=== PATIENT | male | born 1945 | race Hispanic/Latino ===

== ENCOUNTER 2016-10-16 14:47 | Inpatient (IN) | payer OTHER, MEDICARE ==
[2016-10-16 14:47] VITALS: BMI 18.6
--- NOTE | 2016-10-16 15:19 | C.PDOC ---
History Of Present Illness Patient is a 71 y/o male, whose PMHx includes HTN, and anemia, that presents to the ED for evaluation of dizziness, weakness, and mild headache for the past week. Patient states his symptoms have worsened over the last few days. Notes getting B12 injection from his PMD. Otherwise, denies any fever, chills, or any other complaints at this time. Time Seen by Provider: 10/16/16 14:56 Chief Complaint (Nursing): Weakness/Neurological Deficit History Per: Patient History/Exam Limitations: no limitations Onset/Duration Of Symptoms: Days Current Symptoms Are (Timing): Still Present Recent travel outside of the [place]: No Additional History Per: Patient Past Medical History Reviewed: Historical Data, Nursing Documentation, Vital Signs Vital Signs: Last Vital Signs Temp 98.2 F 10/16/16 21:46 Pulse 84 10/16/16 21:46 Resp 20 10/16/16 21:46 BP 127/75 10/16/16 21:46 Pulse Ox 97 10/16/16 21:46 - Medical History PMH: Anemia, Anxiety, Emphysema, HTN - [facility] Procedures MEASURE OF CARDIAC SAMPL & PRESSURE, L HEART, PERC APPROACH (03/20/15) PLAIN RADIOGRAPHY OF SINGLE COR ART USING OTH CONTRAST (03/20/15) PLAIN RADIOGRAPHY OF THORACIC AORTA USING OTHER CONTRAST (03/20/15) Family History: States: Unknown Family Hx, PR (brother -PR at 68; father - HTN) - Social History Hx Tobacco Use: No Hx Alcohol Use: No Hx Substance Use: No - Immunization History Hx Tetanus Toxoid Vaccination: No Hx Influenza Vaccination: Yes (2015) Hx Pneumococcal Vaccination: Yes (2016) Review Of Systems Except As Marked, All Systems Reviewed And Found Negative. Constitutional: Positive for: Weakness. Negative for: Fever, Chills Eyes: Negative for: Vision Change Cardiovascular: Negative for: Chest Pain, Palpitations Gastrointestinal: Negative for: Nausea, Vomiting Neurological: Positive for: Headache, Dizziness. Negative for: Numbness Physical Exam - Physical Exam Appears: Non-toxic, No Acute Distress Skin: Warm, Dry, Pale (mild) Head: Atraumatic, Normacephalic Eye(s): bilateral: Normal Inspection, EOMI Neck: Normal ROM, Supple Chest: Symmetrical, No Tenderness Cardiovascular: Rhythm Regular, No Murmur Respiratory: Normal Breath Sounds, No Rales, No Rhonchi, No Wheezing Gastrointestinal/Abdominal: Soft, No Tenderness Extremity: Normal ROM, No Deformity Neurological/Psych: Oriented x3, Normal Speech, Normal Cognition, No Cerebellar Signs, Normal Motor, Normal Sensation, Normal Reflexes, Other (normal gait) ED Course And Treatment - Laboratory Results Result Diagrams: 10/16/16 15:32 10/16/16 15:32 O2 Sat by Pulse Oximetry: 97 (on RA) Pulse Ox Interpretation: Normal Progress Note: Labs, EKG ordered and reviewed. Medical Decision Making Medical Decision Making: r/o intracrnial, metabolic, anemia, cardiac etiology of symptoms ekg nsr [address] t wave changes. 4: pt reassessed: neuro intact. labs head ct neg. pt lives byhimself. will obs for near syncope. dr yancey accepts Disposition - Disposition Disposition: HOSPITALIZED Disposition Time: 02:00 Condition: STABLE - Clinical Impression Clinical Impression: Near syncope, Weakness - Scribe Statement The provider has reviewed the documentation as recorded by the Scribrussell Ayala All medical record entries made by the Arslanibrussell were at my direction and personally dictated by me. I have reviewed the chart and agree that the record accurately reflects my personal performance of the history, physical exam, medical decision making, and the department course for this patient. I have also personally directed, reviewed, and agree with the discharge instructions and disposition. Decision To Admit - . Patient Diagnosis: Near syncope, Weakness
[2016-10-16 15:40] LABS: BASO % 0.4 % (0.0-2.0); EOS % 0.2 % (0.0-4.0); HEMOGLOBIN 13.4 g/dL (12.0-18.0); LYMPH # 1.1 K/uL (1.0-4.3); LYMPH % 21.3 % (20.0-40.0); MEAN CELL VOLUME 99.2 fL (80.0-94.0); MEAN CORPUSCULAR HEMOGLOBIN 33.4 pg (27.0-31.0); MEAN CORPUSCULAR HGB CONC 33.6 g/dL (33.0-37.0); MEAN PLATELET VOLUME 8.6 fL (7.2-11.7); MONO # 0.5 K/uL (0.0-0.8); MONO % 9.2 % (0.0-10.0); NEUT # 3.4 K/uL (1.8-7.0); NEUT % 68.9 % (50.0-75.0); RBC 4.02 Mil/uL (4.40-5.90); WHITE BLOOD COUNT 4.9 K/uL (4.8-10.8)
[2016-10-16 15:44] LABS: ALBUMIN 3.9 g/dL (3.5-5.0)
[2016-10-16 15:46] LABS: GFR AFRICAN-AMERICAN > 60; GFR NON-AFRICAN AMERICAN > 60
[2016-10-16 15:47] LABS: ALB/GLOB RATIO 1.4 (1.0-2.1); ALT/SGPT 27 U/L (21-72); AST/SGOT 24 U/L (17-59); BLOOD UREA NITROGEN 24 mg/dL (9-20)
[2016-10-16 15:48] LABS: CALCIUM 9.1 mg/dl (8.6-10.4)
[2016-10-16 15:49] LABS: INR 1.1; PROTHROMBIN TIME 12.4 SECONDS (9.7-12.2)
--- NOTE | 2016-10-16 16:26 | CT ---
PROCEDURE: CT HEAD WITHOUT CONTRAST. HISTORY: bill COMPARISON: None available. TECHNIQUE: Axial computed tomography images were obtained through the head/brain without intravenous contrast. Radiation dose: Total exam DLP = 859.11 mGy-cm. This CT exam was performed using one or more of the following dose reduction techniques: Automated exposure control, adjustment of the mA and/or kV according to patient size, and/or use of iterative reconstruction technique. FINDINGS: HEMORRHAGE: No intracranial hemorrhage. BRAIN: Diffuse atrophy with prominence of the ventricles and sulci noted. No mass effect or edema. Dense intracranial atherosclerotic calcifications. The pina-white matter differentiation appears intact. Please note that MRI with diffusion imaging is more sensitive in the detection of acute ischemic event. VENTRICLES: No hydrocephalus. CALVARIUM: Unremarkable. PARANASAL SINUSES: Unremarkable as visualized. No significant inflammatory changes. MASTOID AIR CELLS: Unremarkable as visualized. No inflammatory changes. OTHER FINDINGS: None. IMPRESSION: No acute intracranial pathology identified. Findings as above.
[2016-10-16 16:50] LABS: SQUAMOUS EPITHIAL < 1 /hpf (0-5); URINE BILIRUBIN NEGATIVE (NEGATIVE); URINE BLOOD 1+ (NEGATIVE); URINE CLARITY Clear (Clear); URINE COLOR Straw (YELLOW); URINE GLUCOSE (UA) NORMAL (Normal); URINE LEUKOCYTE ESTERASE NEG Leu/uL (Negative); URINE NITRATE NEGATIVE (NEGATIVE); URINE PROTEIN NEGATIVE (NEGATIVE); URINE UROBILINOGEN NORMAL mg/dL (0.2-1.0)
--- NOTE | 2016-10-16 21:38 | CP.PCM.HP ---
History of Present Illness - History of Present Illness History of Present Illness: CC: Dizziness and weakness HPI: Mr Soto is a 71 yo man who was BIBA to the ED for worsening dizziness and weakness which began 1 week ago. He does not admit to any remitting or exacerbating factors. He associates his dizziness with walking and says he loses his balance. He also endorses a mild headache during this time. He states his losartan 50mg po daily was discontinued a month ago. He denies loss of consciousness, vertigo, vision changes, fever. 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 absent: Chills, Fever - EENT Eyes: absent: Change in Vision Nose/Mouth/Throat: Neck Pain. absent: Sinus Pain, Sore Throat - Cardiovascular Cardiovascular: Dyspnea on Exertion, Lightheadedness. absent: Chest Pain - Respiratory Respiratory: Dyspnea on Exertion. absent: Cough, Wheezing - Gastrointestinal Gastrointestinal: absent: Abdominal Pain, Bloating, Constipation, Diarrhea - Genitourinary Genitourinary: absent: Dysuria, Flank Pain - Musculoskeletal Musculoskeletal: Neck Pain. absent: Back Pain, Joint Swelling - Integumentary Integumentary: absent: Bleeding Lesions, Change in Pigmentation - Neurological Neurological: Dizziness. absent: Behavioral Changes, Confusion, Focal Weakness - Psychiatric Psychiatric: absent: Behavioral Changes Past Patient History - Infectious Disease Hx of Infectious Diseases: None - Past Medical History & Family History Past Medical History?: Yes - Past Social History Smoking Status: Never Smoked - CARDIAC Hx Hypertension: Yes - PULMONARY Hx Emphysema: Yes - HEENT Hx HEENT Problems: No - HEMATOLOGICAL/ONCOLOGICAL Hx Anemia: Yes - MUSCULOSKELETAL/RHEUMATOLOGICAL Hx Falls: No - GASTROINTESTINAL Hx Gastrointestinal Disorders: Yes Hx Gastroesophageal Reflux: Yes Hx Hemorrhoids: Yes - PSYCHIATRIC Hx Anxiety: Yes Hx Substance Use: No - SURGICAL HISTORY Hx Surgeries: Yes Hx Cataract Extraction: Yes (Left eye) Hx Cardiac Catheterization: Yes Other/Comment: HEMORRHOIDECTOMY - ANESTHESIA Hx Anesthesia: Yes Hx Anesthesia Reactions: No Hx Malignant Hyperthermia: No Meds Allergies/Adverse Reactions: Allergies Allergy/AdvReac Type Severity Reaction Status Date / Time Penicillins Allergy Intermediate SWELLING Verified 10/16/16 15:03 Physical Exam - Constitutional Appears: Well, Non-toxic, No Acute Distress - Head Exam Head Exam: NORMAL INSPECTION - Eye Exam Eye Exam: EOMI Additional comments: cloudy lens of left eye - ENT Exam ENT Exam: Mucous Membranes Moist - Neck Exam Neck exam: Negative for: Tenderness Additional comments: tenderness of left neck - Respiratory Exam Respiratory Exam: Clear to Auscultation Bilateral, NORMAL BREATHING PATTERN. absent: Wheezes - Cardiovascular Exam Cardiovascular Exam: REGULAR RHYTHM, RRR, +S1, +S2 - GI/Abdominal Exam GI & Abdominal Exam: Normal Bowel Sounds, Soft. absent: Tenderness - Rectal Exam Rectal Exam: Deferred - Extremities Exam Extremities exam: Positive for: normal inspection. Negative for: calf tenderness, pedal edema, tenderness - Neurological Exam Neurological exam: Alert, CN II-XII Intact, Oriented x3, Reflexes Normal - Psychiatric Exam Psychiatric exam: Normal Affect, Normal Mood - Skin Skin Exam: Dry, Intact, Normal Color, Warm Results - Vital Signs Recent Vital Signs: Last Vital Signs Temp 98.5 F 10/16/16 21:04 Pulse 90 10/16/16 21:04 Resp 16 10/16/16 21:04 BP 128/70 10/16/16 21:04 Pulse Ox 96 10/16/16 21:04 - Labs Result Diagrams: 10/16/16 15:32 10/16/16 15:32 Assessment & Plan (1) Dizziness Assessment and Plan: c/o of dizziness and weakness for 1 week Aspirin 81mg po daily Duplex scan carotid, f/u Neurology consult, Dr Isaac Sands, f/u recs simvastatin 40mg po daily 10/16 CT Head: No acute intracranial pathology identified. Findings as above. 10/16 EKG: NSR, no ST or T wave changes Status: Acute (2) Emphysema of lung Assessment and Plan: con't home meds: albuterol sulfate 90 mcg 1 IH BID Ipratropium 1 puff IH daily Status: Acute (3) Prophylactic measure Assessment and Plan: SCDs Heparin 5000u sc q8 pepcid 20mg po bid heart healthy diet Status: Acute
[2016-10-17 08:20] LABS: BASO % 0.3 % (0.0-2.0); EOS % 0.7 % (0.0-4.0); MEAN CELL VOLUME 99.6 fL (80.0-94.0); MEAN CORPUSCULAR HEMOGLOBIN 33.5 pg (27.0-31.0); MEAN CORPUSCULAR HGB CONC 33.6 g/dL (33.0-37.0); MEAN PLATELET VOLUME 8.3 fL (7.2-11.7); MONO # 0.5 K/uL (0.0-0.8); MONO % 11.2 % (0.0-10.0); NEUT # 2.1 K/uL (1.8-7.0); NEUT % 44.8 % (50.0-75.0); NRBC % 0.1 % (0.0-2.0); RBC 3.89 Mil/uL (4.40-5.90); RED CELL DISTRIBUTION WIDTH 12.9 % (11.5-14.5); WHITE BLOOD COUNT 4.7 K/uL (4.8-10.8)
[2016-10-17 08:47] LABS: ALBUMIN 3.6 g/dL (3.5-5.0)
[2016-10-17 08:50] LABS: ALB/GLOB RATIO 1.2 (1.0-2.1); GFR AFRICAN-AMERICAN > 60; GFR NON-AFRICAN AMERICAN > 60
[2016-10-17 08:51] LABS: ALT/SGPT 27 U/L (21-72); AST/SGOT 23 U/L (17-59); BLOOD UREA NITROGEN 21 mg/dL (9-20); MAGNESIUM 1.9 mg/dL (1.6-2.3)
--- NOTE | 2016-10-17 11:20 | CP.PCM.CON ---
History of Present Illness - History of Present Illness History of Present Illness: NEURO CONSULT NOTE: 10/17/16 CHIEF COMPLAINT: DIZZINESS. HPI: MR. 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 HE MENTIONS THAT THE DIZZINESS IS MORE A FAINT FEELING ALONG WITH MILD SPINNING SENSATION OF THE ROOM. HE FEELS A BUZZING FEELING IN HIS HEAD GIVING HIM A MILD HEADACHE. CT HEAD SHOWED NO ACUTE ABNORMALITY. CAROTID DOPPLER SHOWED MILD DISEASE. THERE IS NO FOCAL WEAKNESS IN THE EXTREMITIES OR A PRONATOR DRIFT. HE IS CACHETIC LOOKING. BUN IS ELEVATED AND CR IS LOW INDICATING PATIENT IS MILDLY DEHYDRATED. BP IS STABLE. ROS: 14 POINT REVIEW OF SYMPTOMS IS NEGATIVE PER HPI. 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 PP 2+ B/L NEURO: PT IS ALERT AND ORIENTED TO PERSON, PLACE, AND YEAR. , RECALL TO 5 MINUTES 3/3, SPEECH IS FLUENT WITHOUT ERRORS, CN II-XII INTACT, MOTOR EXAM: NORMAL TONE,DECREASED BULK OF MUSCLE IN ALL EXTREMITIES, MOVES ALL EXTREMITIES EQUALLY, NO PRONATOR DRIFT SEEN. SENSORY EXAM: LIGHT TOUCH, PIN PRICK UP TO CALVES B/L, PROPRIOCEPTION , VIBRATION ARE INTACT B/L DEEP TENDON REFLEXES: 1+ THROUGHOUT. COORDINATION: FINGER TO NOSE IS INTACT. HEEL TO PRIDE IS INTACT GAIT: DEFERRED FOR NOW. LABS: REVIEWED BY THE CHART. ASSESSMENT AND PLAN: MR. 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 HE MENTIONS THAT THE DIZZINESS IS MORE A FAINT FEELING ALONG WITH MILD SPINNING SENSATION OF THE ROOM. HE FEELS A BUZZING FEELING IN HIS HEAD GIVING HIM A MILD HEADACHE. CT HEAD SHOWED NO ACUTE ABNORMALITY. CAROTID DOPPLER SHOWED MILD DISEASE. THERE IS NO FOCAL WEAKNESS IN THE EXTREMITIES OR A PRONATOR DRIFT. HE IS CACHETIC LOOKING. BUN IS ELEVATED AND CR IS LOW INDICATING PATIENT IS MILDLY DEHYDRATED. BP IS STABLE. IMPRESSION: DIZZINESS IS MORE OF POSITIONAL SUPERIMPOSED MILD DEHYDRATION AND DECONDITIONED STATE. HE IS MALNOURISHED. 1. ASA 81 MG FOR STROKE PREVENTION 2. NEEDS BETTER SLEEP HYGIENE. 3. FIORECET AT THE ACUTE ONSET OF HEADACHE 4. HYDRATION AND MONITOR ELECTROLYTES. 5. MRI BRAIN TO ASSESS FOR ANY CENTRAL PATHOLOGY. 6. ORTHOSTATIC VITAL SIGNS. 7. PHYSICAL THERAPY EVALUATION. THANK YOU. Mahesh DAVID MD Past Patient History - Infectious Disease Hx of Infectious Diseases: None - Past Medical History & Family History Past Medical History?: Yes - Past Social History Smoking Status: Never Smoked - CARDIAC Hx Hypertension: Yes - PULMONARY Hx Emphysema: Yes - HEENT Hx HEENT Problems: No - HEMATOLOGICAL/ONCOLOGICAL Hx Anemia: Yes - MUSCULOSKELETAL/RHEUMATOLOGICAL Hx Falls: No - GASTROINTESTINAL Hx Gastrointestinal Disorders: Yes Hx Gastroesophageal Reflux: Yes Hx Hemorrhoids: Yes - PSYCHIATRIC Hx Anxiety: Yes Hx Substance Use: No - SURGICAL HISTORY Hx Surgeries: Yes Hx Cataract Extraction: Yes (Left eye) Hx Cardiac Catheterization: Yes Other/Comment: HEMORRHOIDECTOMY - ANESTHESIA Hx Anesthesia: Yes Hx Anesthesia Reactions: No Hx Malignant Hyperthermia: No Meds Allergies/Adverse Reactions: Allergies Allergy/AdvReac Type Severity Reaction Status Date / Time Penicillins Allergy Intermediate SWELLING Verified 10/16/16 15:03 aspirin Allergy bleeding Verified 10/16/16 22:07 meclizine [From Antivert] Allergy DIZZINESS Verified 10/16/16 22:07 - Medications Medications: Current Medications Acetaminophen (Tylenol 325mg Tab) 325 mg PO Q4 [facility] Last Admin: 10/17/16 08:25 Dose: 325 mg Aspirin (Ecotrin) 81 mg PO DAILY [facility] Last Admin: 10/17/16 11:10 Dose: 81 mg Famotidine (Pepcid) 20 mg PO BID [facility] Last Admin: 10/17/16 10:46 Dose: 20 mg Heparin Sodium (Porcine) (Heparin) 5,000 units SC Q8 [facility] Last Admin: 10/17/16 06:28 Dose: Not Given Results - Vital Signs Recent Vital Signs: Last Vital Signs Temp 97.4 F L 10/17/16 07:00 Pulse 77 10/17/16 07:00 Resp 20 10/17/16 07:00 BP 135/85 10/17/16 07:00 Pulse Ox 98 10/17/16 07:00 - Labs Result Diagrams: 10/17/16 08:13 10/17/16 08:13 Labs: Laboratory Results - last 24 hr 10/17/16 10/17/16 08:13 08:13 WBC 4.7 L RBC 3.89 L Hgb 13.0 Hct 38.7 MCV 99.6 H MCH 33.5 H MCHC 33.6 RDW 12.9 Plt Count 145 MPV 8.3 Neut % (Auto) 44.8 L Lymph % (Auto) 43.0 H [place] % (Auto) 11.2 H Eos % (Auto) 0.7 Baso % (Auto) 0.3 Neut # 2.1 Lymph # 2.0 [place] # 0.5 Eos # 0.0 Baso # 0.0 Sodium 139 Potassium 3.9 Chloride 99 Carbon Dioxide 32 H Anion Gap 12 BUN 21 H Creatinine 0.8 Est GFR ( Amer) > 60 Est GFR (Non-Af Amer) > 60 Random Glucose 83 Calcium 9.0 Phosphorus 2.8 Magnesium 1.9 Total Bilirubin 1.1 AST 23 ALT 27 Alkaline Phosphatase 76 Total Protein 6.4 Albumin 3.6 Globulin 2.9 Albumin/Globulin Ratio 1.2
--- NOTE | 2016-10-17 15:15 | CP.PCM.PN ---
<Zeb Cantu - Last Filed: 10/17/16 20:27> Subjective - Date & Time of Evaluation Date of Evaluation: 10/17/16 Time of Evaluation: 11:00 - Subjective Subjective: Pt was seen and examined at bedside. Patient was not in acute distress. Patient reports persistence of headaches and dizziness through the night. Neighter symptom has changed in quality. Headache is described to be right-frontal that wraps around over the top and into the occiput. It's associated with bilateral posterior neck pain that radiates up the head. Patient also reports swelling of right temporal artery. He denies chest pain, abdominal pain, nausea, vomiting, diarrhea, bleeding. Objective - Vital Signs/Intake and Output Vital Signs (last 24 hours): Temp Pulse Resp BP Pulse Ox 97.4 F L 77 20 135/85 98 10/17/16 07:00 10/17/16 07:00 10/17/16 07:00 10/17/16 07:00 10/17/16 07:00 Intake and Output: 10/17/16 10/17/16 06:59 18:59 Intake Total 240 Output Total 250 Balance -10 - Medications Medications: Current Medications Acetaminophen (Tylenol 325mg Tab) 325 mg PO Q4 [facility] Last Admin: 10/17/16 12:00 Dose: Not Given Aspirin (Ecotrin) 81 mg PO DAILY [facility] Last Admin: 10/17/16 11:10 Dose: 81 mg Famotidine (Pepcid) 20 mg PO BID [facility] Last Admin: 10/17/16 10:46 Dose: 20 mg Heparin Sodium (Porcine) (Heparin) 5,000 units SC Q8 [facility] Last Admin: 10/17/16 14:53 Dose: 5,000 units - Labs Labs: 10/17/16 08:13 10/17/16 08:13 PT 12.4 SECONDS (9.7-12.2) H 10/16/16 15:32 INR 1.1 10/16/16 15:32 APTT 33 SECONDS (21-34) 10/16/16 15:32 - Constitutional Appears: Well, Non-toxic, No Acute Distress - Head Exam Head Exam: ATRAUMATIC, NORMAL INSPECTION, NORMOCEPHALIC - Eye Exam Eye Exam: EOMI, Normal appearance, PERRL - ENT Exam ENT Exam: Mucous Membranes Moist, Normal Exam - Neck Exam Neck Exam: Full ROM Additional comments: tender to palpation b/l - Respiratory Exam Respiratory Exam: Clear to Ausculation Bilateral, NORMAL BREATHING PATTERN. absent: Wheezes - Cardiovascular Exam Cardiovascular Exam: REGULAR RHYTHM, +S1, +S2. absent: Murmur - GI/Abdominal Exam GI & Abdominal Exam: Soft, Normal Bowel Sounds. absent: Tenderness - Rectal Exam Rectal Exam: Deferred - Extremities Exam Extremities Exam: absent: Calf Tenderness, Tenderness - Neurological Exam Neurological Exam: Alert, Awake, Oriented x3 - Psychiatric Exam Psychiatric exam: Normal Affect, Normal Mood - Skin Skin Exam: Dry, Intact, Normal Color, Warm Assessment and Plan (1) Dizziness Status: Acute (2) Emphysema of lung Status: Acute (3) Prophylactic measure Status: Acute - Assessment and Plan (Free Text) Assessment: (1) Dizziness Assessment and Plan: c/o of dizziness and weakness for 1 week 10/17: Patient seen by Dr Sands, Neurology: "1. ASA 81 MG FOR STROKE PREVENTION 2. NEEDS BETTER SLEEP HYGIENE. 3. FIORECET AT THE ACUTE ONSET OF HEADACHE 4. HYDRATION AND MONITOR ELECTROLYTES. 5. MRI BRAIN TO ASSESS FOR ANY CENTRAL PATHOLOGY. 6. ORTHOSTATIC VITAL SIGNS. 7. PHYSICAL THERAPY EVALUATION." Aspirin 81mg po daily Duplex scan carotid, official report pending Neurology consult, Dr Isaac Sands, f/u recs simvastatin 40mg po daily 10/16 CT Head: No acute intracranial pathology identified. Findings as above. 10/16 EKG: NSR, no ST or T wave changes Status: Acute (2) Emphysema of lung Assessment and Plan: con't home meds: albuterol sulfate 90 mcg 1 IH BID Ipratropium 1 puff IH daily Status: Acute (3) Prophylactic measure Assessment and Plan: SCDs Heparin 5000u sc q8 pepcid 20mg po bid heart healthy diet Status: Acute <Sarkis Garza Jr. - Last Filed: 10/21/16 10:41> Objective - Vital Signs/Intake and Output Vital Signs (last 24 hours): Temp Pulse Resp BP Pulse Ox 98.3 F 88 20 123/79 97 10/20/16 16:02 10/20/16 16:02 10/20/16 16:02 10/20/16 16:02 10/20/16 16:02 - Labs Labs: 10/20/16 07:14 10/20/16 07:14 PT 12.4 SECONDS (9.7-12.2) H 10/16/16 15:32 INR 1.1 10/16/16 15:32 APTT 33 SECONDS (21-34) 10/16/16 15:32 Attending/Attestation - Attestation I have personally seen and examined this patient.: Yes I have fully participated in the care of the patient.: Yes Notes (Text): 10/21/16 10:40 Agree with resident note and findings
[2016-10-18 08:07] LABS: BASO % 0.4 % (0.0-2.0); EOS % 0.8 % (0.0-4.0); HEMOGLOBIN 13.3 g/dL (12.0-18.0); LYMPH # 1.4 K/uL (1.0-4.3); LYMPH % 32.2 % (20.0-40.0); MEAN CELL VOLUME 99.2 fL (80.0-94.0); MEAN CORPUSCULAR HEMOGLOBIN 33.4 pg (27.0-31.0); MEAN CORPUSCULAR HGB CONC 33.7 g/dL (33.0-37.0); MEAN PLATELET VOLUME 8.7 fL (7.2-11.7); MONO # 0.5 K/uL (0.0-0.8); MONO % 11.8 % (0.0-10.0); NEUT # 2.4 K/uL (1.8-7.0); NEUT % 54.8 % (50.0-75.0); NRBC % 0.1 % (0.0-2.0); RBC 3.96 Mil/uL (4.40-5.90); RED CELL DISTRIBUTION WIDTH 12.7 % (11.5-14.5); WHITE BLOOD COUNT 4.4 K/uL (4.8-10.8)
[2016-10-18 08:21] LABS: ALBUMIN 3.5 g/dL (3.5-5.0)
[2016-10-18 08:24] LABS: ALB/GLOB RATIO 1.3 (1.0-2.1); ALT/SGPT 28 U/L (21-72); AST/SGOT 29 U/L (17-59); BLOOD UREA NITROGEN 26 mg/dL (9-20); GFR AFRICAN-AMERICAN > 60; GFR NON-AFRICAN AMERICAN > 60
[2016-10-18 08:25] LABS: CALCIUM 9.2 mg/dl (8.6-10.4); MAGNESIUM 2.1 mg/dL (1.6-2.3)
--- NOTE | 2016-10-18 15:35 | CP.PCM.PN ---
<Elana Villalobos - Last Filed: 10/18/16 15:31> Subjective - Date & Time of Evaluation Date of Evaluation: 10/18/16 Time of Evaluation: 07:45 - Subjective Subjective: PGY1- Medicine Note- Dr. Garza's Service Patient was seen and examined at bedside. Patient states that he still feels dizzy off and on. Patient has left sided neck pain with headache and left eye pain. Patient is very anxious to get MRI. He denies chest pain, palpitations, shortness of breath, nausea, fever, vomiting, diarrhea. Objective - Vital Signs/Intake and Output Vital Signs (last 24 hours): Temp Pulse Resp BP Pulse Ox 97.8 F 77 18 113/71 98 10/18/16 07:00 10/18/16 07:00 10/18/16 07:00 10/18/16 07:00 10/18/16 07:00 Intake and Output: 10/18/16 10/18/16 06:59 18:59 Intake Total 300 Output Total 250 Balance 50 - Medications Medications: Current Medications Acetaminophen (Tylenol 325mg Tab) 325 mg PO Q4 [facility] Last Admin: 10/18/16 12:29 Dose: 325 mg Aspirin (Ecotrin) 81 mg PO DAILY [facility] Last Admin: 10/18/16 10:40 Dose: 81 mg Diazepam (Valium) 5 mg PO ONCE PRN PRN Reason: Anxiety Last Admin: 10/18/16 14:30 Dose: 5 mg Famotidine (Pepcid) 20 mg PO BID [facility] Last Admin: 10/18/16 10:40 Dose: 20 mg Heparin Sodium (Porcine) (Heparin) 5,000 units SC Q8 [facility] Last Admin: 10/18/16 14:30 Dose: 5,000 units - Labs Labs: 10/18/16 07:53 10/18/16 07:53 PT 12.4 SECONDS (9.7-12.2) H 10/16/16 15:32 INR 1.1 10/16/16 15:32 APTT 33 SECONDS (21-34) 10/16/16 15:32 - Constitutional Appears: Well, Non-toxic, No Acute Distress - Head Exam Head Exam: ATRAUMATIC, NORMAL INSPECTION, NORMOCEPHALIC - Eye Exam Eye Exam: EOMI, Normal appearance, PERRL - ENT Exam ENT Exam: Mucous Membranes Moist, Normal Exam - Neck Exam Neck Exam: Full ROM, Normal Inspection, Tenderness. absent: Lymphadenopathy Additional comments: left neck tenderness - Respiratory Exam Respiratory Exam: Clear to Ausculation Bilateral, NORMAL BREATHING PATTERN. absent: Rales, Rhonchi, Wheezes, Respiratory Distress, Stridor - Cardiovascular Exam Cardiovascular Exam: REGULAR RHYTHM, RRR. absent: Murmur - GI/Abdominal Exam GI & Abdominal Exam: Soft, Normal Bowel Sounds. absent: Distended, Firm, Guarding, Rigid, Tenderness - Extremities Exam Extremities Exam: Full ROM, Normal Inspection. absent: Pedal Edema - Back Exam Back Exam: NORMAL INSPECTION - Neurological Exam Neurological Exam: Alert, Awake, Oriented x3 - Psychiatric Exam Psychiatric exam: Anxious, Normal Affect, Normal Mood - Skin Skin Exam: Intact, Normal Color, Warm Assessment and Plan - Assessment and Plan (Free Text) Assessment: (1) Dizziness Assessment and Plan: c/o of dizziness and weakness for 1 week 10/18: Patient to get MRI head with contrast 10/17: Patient seen by Dr Sands, Neurology: "1. ASA 81 MG FOR STROKE PREVENTION 2. NEEDS BETTER SLEEP HYGIENE. 3. FIORECET AT THE ACUTE ONSET OF HEADACHE 4. HYDRATION AND MONITOR ELECTROLYTES. 5. MRI BRAIN TO ASSESS FOR ANY CENTRAL PATHOLOGY. 6. ORTHOSTATIC VITAL SIGNS. 7. PHYSICAL THERAPY EVALUATION." Aspirin 81mg po daily Duplex scan carotid, official report pending Neurology consult, Dr Isaac Sands, f/u recs simvastatin 40mg po daily 10/16 CT Head: No acute intracranial pathology identified. Findings as above. 10/16 EKG: NSR, no ST or T wave changes Status: Acute (2) Emphysema of lung Assessment and Plan: con't home meds: albuterol sulfate 90 mcg 1 IH BID Ipratropium 1 puff IH daily Status: Acute (3) Prophylactic measure Assessment and Plan: SCDs Heparin 5000u sc q8 pepcid 20mg po bid heart healthy diet Status: Acute <Sarkis Garza Jr. - Last Filed: 10/21/16 10:42> Objective - Vital Signs/Intake and Output Vital Signs (last 24 hours): Temp Pulse Resp BP Pulse Ox 98.3 F 88 20 123/79 97 10/20/16 16:02 10/20/16 16:02 10/20/16 16:02 10/20/16 16:02 10/20/16 16:02 - Labs Labs: 10/20/16 07:14 10/20/16 07:14 PT 12.4 SECONDS (9.7-12.2) H 10/16/16 15:32 INR 1.1 10/16/16 15:32 APTT 33 SECONDS (21-34) 10/16/16 15:32 Attending/Attestation - Attestation I have personally seen and examined this patient.: Yes I have fully participated in the care of the patient.: Yes I have reviewed all pertinent clinical information, including history, physical exam and plan: Yes Notes (Text): 10/21/16 10:41 Agree with resident note and findings
--- NOTE | 2016-10-18 17:16 | MRI ---
PROCEDURE: MRI BRAIN WITHOUT CONTRAST HISTORY: DIZZINESS COMPARISON: Comparison made with CT scan of the brain 10/16/2016 TECHNIQUE: Multiplanar, multisequence MR images of the brain were obtained without intravenous contrast enhancement. FINDINGS: HEMORRHAGE: No acute parenchymal, subarachnoid or extra-axial hemorrhage. No evidence of hemosiderin deposition identified on gradient weighted echo sequence DWI: No evidence of an acute or early subacute infarction seen on diffusion imaging. . BRAIN PARENCHYMA: Mild diffuse/ confluent chronic periventricular white matter ischemic changes seen extending peripherally into the deep and subcortical white matter both cerebral hemispheres. Additionally, small sub be lacunar type infarcts also seen scattered about the deep and subcortical white matter bilaterally. No obvious parenchymal nor extra-axial mass or collection seen on this noncontrast study. Moderate generalized volume loss. VENTRICLES: No evidence of obstructive hydrocephalus CRANIUM: No calvarial abnormalities ORBITS: Questionable left cataract surgery PARANASAL SINUSES/MASTOIDS: Clear VASCULAR SYSTEM: Visualized major vascular flow voids at skull base are patent OTHER FINDINGS: None. IMPRESSION: No acute intracranial hemorrhage or infarct. Mild chronic white matter ischemic changes as described. Moderate generalized volume loss.
--- NOTE | 2016-10-18 17:20 | MRI ---
PROCEDURE: MRA brain HISTORY: Dizziness COMPARISON: Correlation made with concurrent MRI brain TECHNIQUE: 3D time of flight MR angiography of the intracranial arteries was performed. Rotating maximum intensity projection images were generated. FINDINGS: Findings: The visualized distal internal carotid arteries including the petrous, cavernous and supraclinoid segments are patent without evidence of significant stenosis. . The visualized portions of the major branches of the [place] as well as distal cerebral of branches of the anterior and middle cerebral arteries are also widely patent with no evidence of occlusion or significant stenosis. . No evidence of occlusion or significant stenosis. No evidence of large aneurysm nor vascular malformation. The vertebral arteries are relatively symmetric and patent as well. Basilar and posterior cerebral arteries are also grossly unremarkable without evidence of occlusion significant stenosis or large aneurysm/ malformation Impression: Unremarkable MRA brain.
[2016-10-19 08:38] LABS: BASO % 0.3 % (0.0-2.0); EOS # 0.1 K/uL (0.0-0.7); EOS % 1.3 % (0.0-4.0); LYMPH # 1.8 K/uL (1.0-4.3); LYMPH % 38.6 % (20.0-40.0); MEAN CELL VOLUME 99.2 fL (80.0-94.0); MEAN CORPUSCULAR HEMOGLOBIN 33.3 pg (27.0-31.0); MEAN CORPUSCULAR HGB CONC 33.6 g/dL (33.0-37.0); MEAN PLATELET VOLUME 8.8 fL (7.2-11.7); MONO # 0.5 K/uL (0.0-0.8); MONO % 10.9 % (0.0-10.0); NEUT # 2.3 K/uL (1.8-7.0); NEUT % 48.9 % (50.0-75.0); RBC 4.21 Mil/uL (4.40-5.90); RED CELL DISTRIBUTION WIDTH 12.7 % (11.5-14.5); WHITE BLOOD COUNT 4.6 K/uL (4.8-10.8)
[2016-10-19 08:44] LABS: ALBUMIN 3.6 g/dL (3.5-5.0)
[2016-10-19 08:46] LABS: AST/SGOT 35 U/L (17-59); GFR AFRICAN-AMERICAN > 60; GFR NON-AFRICAN AMERICAN > 60
[2016-10-19 08:47] LABS: ALB/GLOB RATIO 1.3 (1.0-2.1); ALT/SGPT 33 U/L (21-72); BLOOD UREA NITROGEN 27 mg/dL (9-20); CALCIUM 9.2 mg/dl (8.6-10.4)
[2016-10-19 08:48] LABS: MAGNESIUM 2.1 mg/dL (1.6-2.3)
--- NOTE | 2016-10-19 17:52 | CP.PCM.PN ---
Subjective - Date & Time of Evaluation Date of Evaluation: 10/19/16 Time of Evaluation: 07:00 - Subjective Subjective: PGY1- Medicine Note- Dr. Garza's Service Patient seen and examined at beside and in no acute distress. Patient says he still has some dizziness. Things in the room seem to move side to side. Patient also admits to left sided neck and eye pain. Patient feels he has no relief from the symptoms he was admitted for. Patient denies shortness of breath, chest pain Objective - Vital Signs/Intake and Output Vital Signs (last 24 hours): Temp Pulse Resp BP Pulse Ox 99.0 F 99 H 20 105/71 99 10/19/16 09:16 10/19/16 09:16 10/19/16 09:16 10/19/16 09:16 10/19/16 09:16 Intake and Output: 10/19/16 10/19/16 06:59 18:59 Intake Total 340 Output Total 575 Balance -235 - Medications Medications: Current Medications Acetaminophen (Tylenol 325mg Tab) 325 mg PO Q4 [facility] Last Admin: 10/19/16 16:32 Dose: 325 mg Aspirin (Ecotrin) 81 mg PO DAILY [facility] Last Admin: 10/19/16 10:09 Dose: 81 mg Famotidine (Pepcid) 20 mg PO BID [facility] Last Admin: 10/19/16 10:09 Dose: 20 mg Heparin Sodium (Porcine) (Heparin) 5,000 units SC Q8 [facility] Last Admin: 10/19/16 14:00 Dose: 5,000 units - Labs Labs: 10/19/16 08:05 10/19/16 08:05 PT 12.4 SECONDS (9.7-12.2) H 10/16/16 15:32 INR 1.1 10/16/16 15:32 APTT 33 SECONDS (21-34) 10/16/16 15:32
[2016-10-20 07:51] LABS: ALBUMIN 3.4 g/dL (3.5-5.0)
[2016-10-20 07:54] LABS: ALB/GLOB RATIO 1.3 (1.0-2.1); ALT/SGPT 63 U/L (21-72); AST/SGOT 54 U/L (17-59); BLOOD UREA NITROGEN 31 mg/dL (9-20); GFR AFRICAN-AMERICAN > 60; GFR NON-AFRICAN AMERICAN > 60
[2016-10-20 07:55] LABS: MAGNESIUM 2.1 mg/dL (1.6-2.3)
[2016-10-20 08:05] LABS: BASO % 0.3 % (0.0-2.0); EOS # 0.1 K/uL (0.0-0.7); EOS % 1.3 % (0.0-4.0); HEMOGLOBIN 13.3 g/dL (12.0-18.0); LYMPH % 38.5 % (20.0-40.0); MEAN CELL VOLUME 99.1 fL (80.0-94.0); MEAN CORPUSCULAR HEMOGLOBIN 33.4 pg (27.0-31.0); MEAN CORPUSCULAR HGB CONC 33.7 g/dL (33.0-37.0); MEAN PLATELET VOLUME 8.7 fL (7.2-11.7); MONO # 0.5 K/uL (0.0-0.8); MONO % 10.2 % (0.0-10.0); NEUT # 2.5 K/uL (1.8-7.0); NEUT % 49.7 % (50.0-75.0); NRBC % 0.1 % (0.0-2.0); RBC 3.99 Mil/uL (4.40-5.90); RED CELL DISTRIBUTION WIDTH 12.7 % (11.5-14.5); WHITE BLOOD COUNT 5.1 K/uL (4.8-10.8)
--- NOTE | 2016-10-20 14:37 | VASCLAB ---
PROCEDURE: HISTORY: neck pain; bruit; hx of retinal infarct COMPARISON: None available. TECHNIQUE: Grayscale and duplex Doppler evaluation of the cervical carotid and vertebral arteries were performed. The common carotid, carotid bifurcations and cervical Internal Carotid Artery (ICA) and proximal External Carotid Artery (ECA) were evaluated. The vertebral arteries were evaluated for gross patency and flow direction. Report prepared by Andrea Villatoro, BS, RVT FINDINGS: RIGHT CAROTID ARTERIES: 1. Common Carotid Artery: No significant focal plaque formation of the right common carotid artery. Maximum Peak Systolic velocity: 102 cm/sec: End-diastolic velocity 27 cm/sec. 2. Carotid Bifurcation: plaque formation. Maximum Peak Systolic velocity: 101 cm/sec: End-diastolic velocity 22 cm/sec. 3. Internal Carotid Artery: Plaque description: 3.1. Proximal Segment: Peak systolic velocity 72 cm/sec: End-diastolic velocity 23 cm/sec - % stenosis 0-15% 3.2. Middle Segment: Peak systolic velocity 100 cm/sec: End-diastolic velocity 37 cm/sec - % stenosis 0-15% 3.3. Distal Segment: Peak systolic velocity 90 cm/sec: End-diastolic velocity 34 cm/sec - % stenosis 0-15% 4. External Carotid Artery: No significant focal plaque formation. Peak systolic velocity 154 cm/sec 5. ICA/CCA Ratio: 1.0 LEFT CAROTID ARTERIES: 1. Common Carotid Artery: No significant focal plaque formation of the left common carotid artery. Maximum Peak Systolic velocity: 106 cm/sec: End-diastolic velocity 32 cm/sec. 2. Carotid Bifurcation: plaque formation. Maximum Peak Systolic velocity: 100 cm/sec: End-diastolic velocity 28 cm/sec. 3. Internal Carotid Artery: Plaque description: 3.1. Proximal Segment: Peak systolic velocity 98 cm/sec: End-diastolic velocity 32 cm/sec - % stenosis 0-15% 3.2. Middle Segment: Peak systolic velocity 90 cm/sec: End-diastolic velocity 27 cm/sec - % stenosis 0-15% 3.3. Distal Segment: Peak systolic velocity 77 cm/sec: End-diastolic velocity 27 cm/sec - % stenosis 0-15% 4. External Carotid Artery: No significant focal plaque formation. Peak systolic velocity 103 cm/sec 5. ICA/CCA Ratio: 0.9 VERTEBRAL ARTERIES: 1. Right Vertebral Artery: The right vertebral artery flow direction is antegrade. 2. Left Vertebral Artery: The left vertebral artery flow direction is antegrade. OTHER FINDINGS: 1. Right Brachial Blood pressure: 116 mmHg. 2. Left Brachial Blood pressure: 100 mmHg. IMPRESSION: RIGHT: Duplex scan does not suggest hemodynamically significant stenosis of the right extracranial carotid arteries. LEFT: Duplex scan does not suggest hemodynamically significant stenosis of the left extracranial carotid arteries.
--- NOTE | 2016-10-20 15:34 | CARD ---
APPROVED REPORT EKG Measurement Heart [id number] <Conclusion> Normal sinus rhythm with sinus arrhythmia Possible Left atrial enlargement Borderline ECG
--- NOTE | 2016-10-20 15:35 | CARD ---
APPROVED REPORT EKG Measurement Heart [id number] <Conclusion> Normal sinus rhythm Possible Left atrial enlargement Cannot rule out Anterior infarct, age undetermined Abnormal ECG
[2016-10-20 16:03] VITALS: BP 123/79; PULSE 88; RESP 20; TEMP 98.3; O2SAT 97
--- NOTE | 2016-10-20 18:35 | CP.PCM.DIS ---
Provider - Provider Date of Admission: 10/16/16 17:04 Attending physician: Sarkis Garza Jr, MD Consults: Dr. Sands Time Spent in preparation of Discharge (in minutes): 45 Diagnosis - Discharge Diagnosis (1) Dizziness Status: Acute Comment: see summary for details. (2) Emphysema of lung Status: Acute Comment: see summary for details Hospital Course - Lab Results Lab Results: Most Recent Lab Values WBC 5.1 K/uL (4.8-10.8) 10/20/16 07:14 RBC 3.99 Mil/uL (4.40-5.90) L 10/20/16 07:14 Hgb 13.3 g/dL (12.0-18.0) 10/20/16 07:14 Hct 39.5 % (35.0-51.0) 10/20/16 07:14 MCV 99.1 fL (80.0-94.0) H 10/20/16 07:14 MCH 33.4 pg (27.0-31.0) H 10/20/16 07:14 MCHC 33.7 g/dL (33.0-37.0) 10/20/16 07:14 RDW 12.7 % (11.5-14.5) 10/20/16 07:14 Plt Count 146 K/uL (130-400) 10/20/16 07:14 MPV 8.7 fL (7.2-11.7) 10/20/16 07:14 Neut % (Auto) 49.7 % (50.0-75.0) L 10/20/16 07:14 Lymph % (Auto) 38.5 % (20.0-40.0) 10/20/16 07:14 Lea % (Auto) 10.2 % (0.0-10.0) H 10/20/16 07:14 Eos % (Auto) 1.3 % (0.0-4.0) 10/20/16 07:14 Baso % (Auto) 0.3 % (0.0-2.0) 10/20/16 07:14 Neut # 2.5 K/uL (1.8-7.0) 10/20/16 07:14 Lymph # 2.0 K/uL (1.0-4.3) 10/20/16 07:14 Lea # 0.5 K/uL (0.0-0.8) 10/20/16 07:14 Eos # 0.1 K/uL (0.0-0.7) 10/20/16 07:14 Baso # 0.0 K/uL (0.0-0.2) 10/20/16 07:14 PT 12.4 SECONDS (9.7-12.2) H 10/16/16 15:32 INR 1.1 10/16/16 15:32 APTT 33 SECONDS (21-34) 10/16/16 15:32 Sodium 140 mmol/L (132-148) 10/20/16 07:14 Potassium 3.8 mmol/L (3.6-5.2) 10/20/16 07:14 Chloride 104 mmol/L (98-107) 10/20/16 07:14 Carbon Dioxide 29 mmol/L (22-30) 10/20/16 07:14 Anion Gap 10 (10-20) 10/20/16 07:14 BUN 31 mg/dL (9-20) H 10/20/16 07:14 Creatinine 0.8 MG/DL (0.8-1.5) 10/20/16 07:14 Est GFR ( Amer) > 60 10/20/16 07:14 Est GFR (Non-Af Amer) > 60 10/20/16 07:14 POC Glucose (mg/dL) 146 mg/dL (65-110) H 10/16/16 15:09 Random Glucose 86 mg/dL (75-110) 10/20/16 07:14 Calcium 9.0 mg/dl (8.6-10.4) 10/20/16 07:14 Phosphorus 2.8 mg/dL (2.5-4.5) 10/20/16 07:14 Magnesium 2.1 mg/dL (1.6-2.3) 10/20/16 07:14 Total Bilirubin 0.6 mg/dL (0.2-1.3) 10/20/16 07:14 AST 54 U/L (17-59) 10/20/16 07:14 ALT 63 U/L (21-72) 10/20/16 07:14 Alkaline Phosphatase 73 U/L (38-126) 10/20/16 07:14 Troponin I < 0.0120 ng/mL (0.00-0.120) 10/16/16 15:32 Total Protein 6.1 g/dL (6.3-8.3) L 10/20/16 07:14 Albumin 3.4 g/dL (3.5-5.0) L 10/20/16 07:14 Globulin 2.7 gm/dL (2.2-3.9) 10/20/16 07:14 Albumin/Globulin Ratio 1.3 (1.0-2.1) 10/20/16 07:14 Urine Color Straw (YELLOW) 10/16/16 16:44 Urine Clarity Clear (Clear) 10/16/16 16:44 Urine pH 8.0 (5.0-8.0) 10/16/16 16:44 Ur Specific [place] 1.008 (1.003-1.030) 10/16/16 16:44 Urine Protein Negative mg/dL (NEGATIVE) 10/16/16 16:44 Urine Glucose (UA) Normal mg/dL (Normal) 10/16/16 16:44 Urine Ketones Negative mg/dL (NEGATIVE) 10/16/16 16:44 Urine Blood 1+ (NEGATIVE) H 10/16/16 16:44 Urine Nitrate Negative (NEGATIVE) 10/16/16 16:44 Urine Bilirubin Negative (NEGATIVE) 10/16/16 16:44 Urine Urobilinogen Normal mg/dL (0.2-1.0) 10/16/16 16:44 Ur Leukocyte Esterase Neg [place]/uL (Negative) 10/16/16 16:44 Urine WBC (Auto) < 1 /hpf (0-5) 10/16/16 16:44 Urine RBC (Auto) 3 /hpf (0-3) 10/16/16 16:44 Ur Squamous Epith Cells < 1 /hpf (0-5) 10/16/16 16:44 - Hospital Course Hospital Course: CC: Dizziness and weakness HPI: Mr Soto is a 71 yo man who was BIBA to the ED for worsening dizziness and weakness which began 1 week ago. He does not admit to any remitting or exacerbating factors. He associates his dizziness with walking and says he loses his balance. He also endorses a mild headache during this time. He states his losartan 50mg po daily was discontinued a month ago. He denies loss of consciousness, vertigo, vision changes, fever. Patient admitted to the hospital for dizziness and emphysema of the lungs. Dr. Sands (neuro) recommended patient to take aspirin 81 mg for stroke prevention, take fiorecet at onset of headache, better sleep hygene. On 10/16 CT Head showed No acute intracranial pathology identified. EKG showed NSR, no ST or T wave changes. For emphysema patient continued on home medications. Carotid dopplers were negative. On 10/17 MRI showed no acute intracranial hemorrhage or infarct. Mild chronic white matter ischemic changes as described. Moderate generalized volume loss. On 10/17 MRA brain was unremarkable. Dr. Garza cleared patient for discharge. Patient to go to subacute rehab to continue working on stability and increase strength. This is a summary of patient's hospital course. Please see chart for full details. Discharge Exam - Head Exam Head Exam: ATRAUMATIC, NORMAL INSPECTION, NORMOCEPHALIC - Eye Exam Eye Exam: EOMI, Normal appearance, PERRL - ENT Exam ENT Exam: Mucous Membranes Moist - Neck Exam Neck exam: Full Rom, Tenderness Additional comments: left muscular tenderness - Respiratory Exam Respiratory Exam: Clear to PA & Lateral, NORMAL BREATHING PATTERN, UNREMARKABLE. absent: Rales, Rhonchi, Wheezes, Respiratory Distress, Stridor - Cardiovascular Exam Cardiovascular Exam: REGULAR RHYTHM, RRR. absent: Gallop, Rubs, Systolic Murmur - GI/Abdominal Exam GI & Abdominal Exam: Normal Bowel Sounds. absent: Distended, Firm, Guarding - Extremities Exam Extremities exam: normal inspection - Back Exam Back exam: NORMAL INSPECTION. absent: rash noted - Neurological Exam Neurological exam: Alert, Oriented x3 - Psychiatric Exam Psychiatric exam: Normal Affect, Normal Mood - Skin Skin Exam: Dry, Normal Color, Warm Discharge Plan - Follow Up Plan Condition: STABLE Disposition: REHAB FACILITY/REHAB UNIT Instructions: Heart Healthy Diet (DC), Syncope (DC), Emphysema (DC), Dizziness (GEN) Additional Instructions: Patient cleared for discharge as per Dr. Garza. Patient to follow up with PMD after rehab. If patient's symptoms worsen or return patient should return to Emergency Room Immediately. Instructions explained to patient who understood and agreed. Referrals: Sarkis Garza Jr., MD [Medical Doctor] -
== END 2016-10-20 18:43 | DRG 296 ==
LOC: C.ER 14:47 → C.9E 17:04 → C.6T 20:06
PROVIDERS: ADMIT Internal Medicine; ATTEND Internal Medicine
DX: E86.0 Dehydration (principal); E46 Unspecified protein-calorie malnutrition; R64 Cachexia; J43.9 Emphysema, unspecified; Z68.1 Body mass index [BMI] 19.9 or less, adult; I10 Essential (primary) hypertension; R55 Syncope and collapse; K21.9 Gastro-esophageal reflux disease without esophagitis; N40.0 Benign prostatic hyperplasia without lower urinary tract symptoms; D64.9 Anemia, unspecified; F41.9 Anxiety disorder, unspecified; H26.9 Unspecified cataract

== ENCOUNTER 2017-05-02 16:50 | Emergency (ER) | payer MEDICARE, OTHER ==
[2017-05-02 16:51] VITALS: BMI 18.6
[2017-05-02 17:12] VITALS: BP 144/76; PULSE 98; TEMP 98.9; O2SAT 95
--- NOTE | 2017-05-02 18:10 | C.PDOC ---
History Of Present Illness Patient is a 72 year old valenzuela who had left eye cataract surgery in June of 2016 who presents today with pain, burning, floaters and blood in the left eye. 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 Patient states that he only has 10% vision now in the left eye. On April 29, 2017 he had Ozurdex injected into his left eye to treat his left eye swelling. The next day he started to experience pain, burning and floaters in the left eye. Then today he noticed blood in the left eye and the blood scared him prompting him to come to the ED. Patient does not take blood thinners. Patient also c/o blurry vision in his left eye but states it has been blurry for the past 10 months (not worse PMD: [facility] -- Dr. Debbie Sow Time Seen by Provider: 05/02/17 17:36 Chief Complaint (Nursing): Eye Problem History Per: Patient Onset/Duration Of Symptoms: Days Current Symptoms Are (Timing): Still Present Past Medical History Reviewed: Historical Data, Nursing Documentation, Vital Signs Vital Signs: Last Vital Signs Temp 98.9 F 05/02/17 17:11 Pulse 98 H 05/02/17 17:11 Resp 20 05/02/17 17:11 BP 144/76 05/02/17 17:11 Pulse Ox 95 05/02/17 18:10 - Medical History PMH: Anemia, Anxiety, Emphysema, HTN Other Surgeries: Cataract surgery (followed by additional eye problems - left eye) - [facility] Procedures MEASURE OF CARDIAC SAMPL & PRESSURE, L HEART, PERC APPROACH (03/20/15) PLAIN RADIOGRAPHY OF SINGLE COR ART USING OTH CONTRAST (03/20/15) PLAIN RADIOGRAPHY OF THORACIC AORTA USING OTHER CONTRAST (03/20/15) Family History: States: Unknown Family Hx, [place] (brother -[place] at 68; father - HTN) - Social History Hx Tobacco Use: No Hx Alcohol Use: No Hx Substance Use: No - Immunization History Hx Tetanus Toxoid Vaccination: No Hx Influenza Vaccination: Yes (2015) Hx Pneumococcal Vaccination: Yes (2015) Review Of Systems Except As Marked, All Systems Reviewed And Found Negative. Constitutional: Negative for: Fever Eyes: Positive for: Pain, Redness, Other (floaters) Respiratory: Negative for: Shortness of Breath Physical Exam - Physical Exam Appears: Well, Non-toxic, No Acute Distress Head: Atraumatic Eye(s): bilateral: PERRL, EOMI, left: Other (Left eye with inferior subconjunctival hemorrhage; vision in right eye is 20/40, left eye is 20/800, bilaterally is 20/30) Nose: Normal Lips: Normal Appearing Cardiovascular: Rhythm Regular Respiratory: Normal Breath Sounds ED Course And Treatment O2 Sat by Pulse Oximetry: 95 Medical Decision Making Medical Decision Making: Initial Impression: Post-injection subconjunctival hemorrhage Initial Plan: Message left on emergency phone service with [facility] at 5:52 PM to call me in the Emergency Dept regarding management recommendations and disposition ( phone number of service is [phone]) Progress Note(s): 6:30 PM -- Dr. Yobani Franco from [facility] called back. He states this subconjunctival hemorrhage will sometimes occur w/ these injections but nothing to be alarmed about. He recommends that the pt follow up in his office on Thursday so he can evaluate the pt. Disposition - Disposition Referrals: Yobani Franco [Staff Provider] - Disposition: HOME/ ROUTINE Disposition Time: 18:30 Condition: STABLE Additional Instructions: Brittany, thank you for letting us take care of you today. Return to the ER if your symptoms worsen or if you develop horrible pain in the left eye. You need to follow up at [facility] this Thursday. I spoke to Dr. Yobani Franco and he will examine you this Thursday. Instructions: Subconjunctival Hemorrhage (ED) Forms: [employer] (Yoruba) Print Language: URDU - POA Present On Arrival: None - Clinical Impression Clinical Impression: Subconjunctival hemorrhage of left eye
[2017-05-02 18:54] VITALS: RESP 16
== END 2017-05-02 18:53 | disposition home or self-care (01) ==
LOC: C.ER 16:50
DX: H11.32 Conjunctival hemorrhage, left eye (principal)

== ENCOUNTER 2017-10-01 13:42 | Observation (INO) | payer MEDICARE, OTHER ==
[2017-10-01 13:46] VITALS: BMI 20.5
[2017-10-01 14:42] LABS: BASO % 0.6 % (0.0-2.0); EOS % 0.1 % (0.0-4.0); HEMOGLOBIN 13.9 g/dL (12.0-18.0); LYMPH # 0.7 K/uL (1.0-4.3); LYMPH % 11.3 % (20.0-40.0); MEAN CELL VOLUME 97.3 fL (80.0-94.0); MEAN CORPUSCULAR HEMOGLOBIN 33.3 pg (27.0-31.0); MEAN CORPUSCULAR HGB CONC 34.2 g/dL (33.0-37.0); MEAN PLATELET VOLUME 7.6 fL (7.2-11.7); MONO # 0.4 K/uL (0.0-0.8); MONO % 7.4 % (0.0-10.0); NEUT # 4.8 K/uL (1.8-7.0); NEUT % 80.6 % (50.0-75.0); RBC 4.18 Mil/uL (4.40-5.90); RED CELL DISTRIBUTION WIDTH 12.7 % (11.5-14.5)
[2017-10-01 14:46] LABS: URINE BILIRUBIN NEGATIVE (NEGATIVE); URINE BLOOD 1+ (NEGATIVE); URINE CLARITY Clear (Clear); URINE COLOR Yellow (YELLOW); URINE GLUCOSE (UA) 1+ mg/dL (Normal); URINE LEUKOCYTE ESTERASE NEG Leu/uL (Negative); URINE PROTEIN NEGATIVE (NEGATIVE); URINE UROBILINOGEN NORMAL mg/dL (0.2-1.0)
[2017-10-01 15:06] LABS: ALB/GLOB RATIO 1.8 (1.0-2.1); ALBUMIN 4.4 g/dL (3.5-5.0); ALT/SGPT 30 U/L (21-72); AST/SGOT 28 U/L (17-59); BLOOD UREA NITROGEN 20 mg/dL (9-20); CALCIUM 9.2 mg/dl (8.6-10.4); GFR AFRICAN-AMERICAN > 60; GFR NON-AFRICAN AMERICAN > 60
--- NOTE | 2017-10-01 16:06 | CT ---
PROCEDURE: CT Abdomen and Pelvis without intravenous contrast HISTORY: Pain COMPARISON: CT scan of the abdomen and pelvis dated 02/01/2016. TECHNIQUE: Contiguous images were obtained from the domes of the diaphragms to the upper thighs without the administration of intravenous contrast. Oral contrast was not administered. Radiation dose: Total exam DLP = 290.3 mGy-cm. This CT exam was performed using one or more of the following dose reduction techniques: Automated exposure control, adjustment of the mA and/or kV according to patient size, and/or use of iterative reconstruction technique. FINDINGS: LOWER THORAX: Mild eventration of the left hemidiaphragm. No focal consolidation or pleural effusion. Heart size normal. LIVER: Unremarkable. No gross lesion or ductal dilatation. GALLBLADDER AND BILE DUCTS: Unremarkable. PANCREAS: Stable 9 mm cystic structure in the pancreatic body. No ductal dilatation. SPLEEN: Unremarkable. ADRENALS: Unremarkable. No mass. KIDNEYS AND URETERS: Bilateral nonobstructive sub centimeter renal calculi. No hydronephrosis. No solid mass. VASCULATURE: Calcific atherosclerosis. No aortic aneurysm. BOWEL: Unremarkable. No obstruction. No gross mural thickening. APPENDIX: No findings to suggest acute appendicitis. PERITONEUM: Unremarkable. No free fluid. No free air. LYMPH NODES: Unremarkable. No enlarged lymph nodes. BLADDER: Unremarkable. REPRODUCTIVE: Prostatomegaly. BONES: No acute fracture. OTHER FINDINGS: None. IMPRESSION: No obstructive uropathy or evidence of recently passed genitourinary calculus. Bilateral nonobstructive subcentimeter renal calculi. Additional findings as above including stable 9 mm pancreatic body cystic structure.
[2017-10-01 17:10] LABS: LIPASE 132 U/L (23-300)
--- NOTE | 2017-10-01 17:19 | CT ---
PROCEDURE: CT HEAD WITHOUT CONTRAST. HISTORY: dizzy COMPARISON: CT head dated 10/16/2016. MRI brain dated 10/18/2016. TECHNIQUE: Axial computed tomography images were obtained through the head/brain without intravenous contrast. Radiation dose: Total exam DLP = 867 mGy-cm. This CT exam was performed using one or more of the following dose reduction techniques: Automated exposure control, adjustment of the mA and/or kV according to patient size, and/or use of iterative reconstruction technique. FINDINGS: HEMORRHAGE: No intracranial hemorrhage. BRAIN: No mass effect or edema. Atrophy. Chronic microvascular ischemic changes. VENTRICLES: Prominent. No hydrocephalus. CALVARIUM: Unremarkable. PARANASAL SINUSES: Unremarkable as visualized. No significant inflammatory changes. MASTOID AIR CELLS: Unremarkable as visualized. No inflammatory changes. OTHER FINDINGS: None. IMPRESSION: No acute intracranial pathology. Age-related changes.
[2017-10-01 17:27] LABS: CK-MB < 0.22 ng/mL (0.0-3.38)
--- NOTE | 2017-10-01 17:48 | C.PDOC ---
History Of Present Illness 72 year old male presents to the ED for evaluation of right-sided abdominal pain which began three days ago. Notes the pain radiated to his right back. Patient reports history of kidney stones and believes the symptoms are secondary to the stones. Pt has seen Dr Eason in the past, no recent visits. Also reports dizziness, lightheadedness and weakness since April. Symptoms are intermittent. Similar episode in April when he was hospitalized and " they couldn't find out what was wrong." (+) decreased appetite. Patient states he has been taking Meloxicam with mild improvement. He denies fever, chills, chest pain, shortness of breath, back pain, dysuria, hematuria, or changes in bowel habits. Urologist: Dr. Eason Time Seen by Provider: 10/01/17 13:50 Chief Complaint (Nursing): Male Genitourinary History Per: Patient History/Exam Limitations: no limitations Onset/Duration Of Symptoms: Days (3) Current Symptoms Are (Timing): Still Present Quality Of Discomfort: "Pain" Associated Symptoms: denies: Fever, Chills, Nausea, Vomiting, Urinary Symptoms Additional History Per: Patient Past Medical History Reviewed: Historical Data, Nursing Documentation, Vital Signs Vital Signs: Last Vital Signs Temp 97.4 F L 10/06/17 15:01 Pulse 70 10/06/17 16:00 Resp 20 10/06/17 15:01 BP 107/66 10/06/17 15:01 Pulse Ox 98 10/06/17 15:01 - Medical History PMH: Anemia, Anxiety, Emphysema, HTN, Hypercholesterolemia Surgical History: No Surg Hx - [facility] Procedures MEASURE OF CARDIAC SAMPL & PRESSURE, L HEART, PERC APPROACH (03/20/15) PLAIN RADIOGRAPHY OF SINGLE COR ART USING OTH CONTRAST (03/20/15) PLAIN RADIOGRAPHY OF THORACIC AORTA USING OTHER CONTRAST (03/20/15) Family History: States: [place] (brother -[place] at 68; father - HTN) - Social History Hx Tobacco Use: No Hx Alcohol Use: No Hx Substance Use: No - Immunization History Hx Tetanus Toxoid Vaccination: No Hx Influenza Vaccination: Yes (2015) Hx Pneumococcal Vaccination: Yes (2015) Review Of Systems Constitutional: Positive for: Weakness, Other (decreased appetite ). Negative for: Fever, Chills Cardiovascular: Negative for: Chest Pain Respiratory: Negative for: Shortness of Breath Gastrointestinal: Negative for: Diarrhea, Constipation Neurological: Positive for: Other (lightheadedness ) Physical Exam - Physical Exam Appears: Non-toxic, No Acute Distress Skin: Warm, Dry, Rash (sandpaper-like, blanching erythematous rash to torso ) Head: Atraumatic, Normacephalic Eye(s): bilateral: Normal Inspection Nose: Normal Oral Mucosa: Moist Neck: Normal ROM, Supple Chest: Symmetrical, No Deformity, No Tenderness Cardiovascular: Rhythm Regular Respiratory: Normal Breath Sounds, No Rales, No Rhonchi, No Wheezing Gastrointestinal/Abdominal: Soft, Tenderness (right lower quadrant ), No Guarding, No Rebound Back: No Vertebral Tenderness Extremity: Normal ROM, Capillary Refill (less than 2 seconds ) Neurological/Psych: Oriented x3, Normal Speech, Normal Cognition ED Course And Treatment - Laboratory Results Result Diagrams: 10/01/17 14:39 10/01/17 14:39 ECG: Interpreted By Me, Viewed By Me ECG Rhythm: Sinus Rhythm Rate From EC O2 Sat by Pulse Oximetry: 99 (on RA) Pulse Ox Interpretation: Normal Progress Note: Bloodwork, CXR, CT Head, CT A/P ordered and reviewed. Tylenol PO and Toradol IVP administered. On re-examination, patient states his pain persists and he feels too weak to go home. Unsteady gait. Case discussed with lara Mckeon [facility] admission. Disposition - Disposition Disposition: HOSPITALIZED Disposition Time: 18:00 Condition: STABLE - Clinical Impression Clinical Impression: Dizziness, Abdominal pain - PA / MORTGAGE SERVICING SPECIALIST / Resident Statement MD/DO has reviewed & agrees with the documentation as recorded. - Scribe Statement The provider has reviewed the documentation as recorded by the Scribe (Jessica Ayala)
--- NOTE | 2017-10-01 18:02 | RAD ---
PROCEDURE: CHEST RADIOGRAPH, 1 VIEW HISTORY: SOB COMPARISON: Chest radiograph dated 06/06/2016. FINDINGS: LUNGS: Clear. Vague nodular densities in the left upper lung. PLEURA: Eventration of the left hemidiaphragm. No pneumothorax or pleural fluid seen. CARDIOVASCULAR: Atherosclerotic aortic calcifications. Cardiomediastinal silhouette within normal limits. OSSEOUS STRUCTURES: Unchanged. VISUALIZED UPPER ABDOMEN: Normal. OTHER FINDINGS: None. IMPRESSION: No active disease. Vague nodular densities in the left upper lung for which CT scan can be obtained for further evaluation on a non-emergent basis.
[2017-10-02] MEDS: Sodium Chloride 0.9% 1,000 ML IV SCH ×3 (06:06→14:03)
[2017-10-02] MEDS ORDERED: diaZEpam 10 mg/2 ml Inj IVP ONE (07:11)
--- NOTE | 2017-10-02 07:15 | CP.PCM.CON ---
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 - HEENT Hx HEENT Problems: No - HEMATOLOGICAL/ONCOLOGICAL Hx Anemia: Yes - MUSCULOSKELETAL/RHEUMATOLOGICAL Hx Falls: No - GASTROINTESTINAL Hx Gastrointestinal Disorders: Yes Hx Gastroesophageal Reflux: Yes Hx Hemorrhoids: Yes - PSYCHIATRIC Hx Anxiety: Yes Hx Substance Use: No - SURGICAL HISTORY Hx Surgeries: Yes Hx Cataract Extraction: Yes (Left eye) Hx Cardiac Catheterization: Yes Other/Comment: HEMORRHOIDECTOMY - ANESTHESIA Hx Anesthesia: Yes Hx Anesthesia Reactions: No Hx Malignant Hyperthermia: No Meds Allergies/Adverse Reactions: Allergies Allergy/AdvReac Type Severity Reaction Status Date / Time Penicillins Allergy Intermediate SWELLING Verified 10/01/17 13:45 aspirin Allergy bleeding Verified 10/01/17 13:45 meclizine [From Antivert] Allergy DIZZINESS Verified 10/01/17 13:45 - Medications Medications: Current Medications Alprazolam (Xanax) 0.5 mg PO BID EDGARD Aspirin (Ecotrin) 81 mg PO DAILY [facility] Diazepam (Valium) 5 mg IVP ONCE ONE Stop: 10/02/17 07:12 Home Med (Albuterol Sulfate [Proair Respiclick]) 1 applic IH BID [facility]GARD Sodium Chloride (Sodium Chloride 0.9%) 1,000 mls @ 75 mls/hr IV .[id number] [facility] Last Admin: 10/02/17 06:07 Dose: Not Given Losartan Potassium (Cozaar) 50 mg PO DAILY [facility] Pantoprazole Sodium (Protonix Ec Tab) 40 mg PO DAILY [facility] Rosuvastatin Calcium (Crestor) 10 mg PO HS [facility] Tramadol HCl (Ultram) 50 mg PO Q6 PRN PRN Reason: Pain, moderate (4-7) Last Admin: 10/02/17 00:47 Dose: 50 mg Results - Vital Signs Recent Vital Signs: Last Vital Signs Temp 97.9 F 10/01/17 23:40 Pulse 67 10/02/17 01:00 Resp 20 10/01/17 23:40 BP 124/67 10/01/17 23:40 Pulse Ox 98 10/01/17 23:40 - Labs Result Diagrams: 10/01/17 14:39 10/01/17 14:39 Labs: Laboratory Results - last 24 hr 10/01/17 10/01/17 10/01/17 14:25 14:39 14:39 WBC 6.0 RBC 4.18 L Hgb 13.9 Hct 40.6 MCV 97.3 H MCH 33.3 H MCHC 34.2 RDW 12.7 Plt Count 153 MPV 7.6 Neut % (Auto) 80.6 H Lymph % (Auto) 11.3 L [place] % (Auto) 7.4 Eos % (Auto) 0.1 Baso % (Auto) 0.6 Neut # (Auto) 4.8 Lymph # (Auto) 0.7 L [place] # (Auto) 0.4 Eos # (Auto) 0.0 Baso # (Auto) 0.0 Sodium 143 Potassium 3.6 Chloride 102 Carbon Dioxide 29 Anion Gap 15 BUN 20 Creatinine 0.7 L Est GFR ( Amer) > 60 Est GFR (Non-Af Amer) > 60 Random Glucose 131 H Calcium 9.2 Total Bilirubin 0.8 AST 28 ALT 30 Alkaline Phosphatase 59 Total Creatine Kinase CK-MB (Mass) Troponin I Total Protein 6.9 Albumin 4.4 Globulin 2.5 Albumin/Globulin Ratio 1.8 Lipase Urine Color Yellow Urine Clarity Clear Urine pH 8.0 Ur Specific [place] 1.014 Urine Protein Negative Urine Glucose (UA) 1+ H Urine Ketones Negative Urine Blood 1+ H Urine Nitrate Negative Urine Bilirubin Negative Urine Urobilinogen Normal Ur Leukocyte Esterase Neg Urine WBC (Auto) 2 Urine RBC (Auto) 2 Grp A Beta Strep Ag 10/01/17 10/01/17 16:54 17:26 WBC RBC Hgb Hct MCV MCH MCHC RDW Plt Count MPV Neut % (Auto) Lymph % (Auto) [place] % (Auto) Eos % (Auto) Baso % (Auto) Neut # (Auto) Lymph # (Auto) [place] # (Auto) Eos # (Auto) Baso # (Auto) Sodium Potassium Chloride Carbon Dioxide Anion Gap BUN Creatinine Est GFR ( Amer) Est GFR (Non-Af Amer) Random Glucose Calcium Total Bilirubin AST ALT Alkaline Phosphatase Total Creatine Kinase 113 CK-MB (Mass) < 0.22 Troponin I < 0.0120 Total Protein Albumin Globulin Albumin/Globulin Ratio Lipase 132 Urine Color Urine Clarity Urine pH Ur Specific [place] Urine Protein Urine Glucose (UA) Urine Ketones Urine Blood Urine Nitrate Urine Bilirubin Urine Urobilinogen Ur Leukocyte Esterase Urine WBC (Auto) Urine RBC (Auto) Grp A Beta Strep Ag Negative
[2017-10-02 08:16] LABS: FREE T4 1.01 ng/dL (0.78-2.19)
[2017-10-02 09:05] LABS: FOLATE 13.3 ng/mL
[2017-10-02] MEDS ORDERED: Albuterol HFA 90 mcg/actuation (8 g) IH SCH (10:00)
[2017-10-02] MEDS: Pantoprazole 40 mg EC Tab PO SCH (10:27)
--- NOTE | 2017-10-02 12:53 | CP.PCM.HP ---
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 - HEENT Hx HEENT Problems: No - HEMATOLOGICAL/ONCOLOGICAL Hx Anemia: Yes - MUSCULOSKELETAL/RHEUMATOLOGICAL Hx Falls: No - GASTROINTESTINAL Hx Gastrointestinal Disorders: Yes Hx Gastroesophageal Reflux: Yes Hx Hemorrhoids: Yes - PSYCHIATRIC Hx Anxiety: Yes Hx Substance Use: No - SURGICAL HISTORY Hx Surgeries: Yes Hx Cataract Extraction: Yes (Left eye) Hx Cardiac Catheterization: Yes Other/Comment: HEMORRHOIDECTOMY - ANESTHESIA Hx Anesthesia: Yes Hx Anesthesia Reactions: No Hx Malignant Hyperthermia: No Meds Allergies/Adverse Reactions: Allergies Allergy/AdvReac Type Severity Reaction Status Date / Time Penicillins Allergy Intermediate SWELLING Verified 10/01/17 13:45 aspirin Allergy bleeding Verified 10/01/17 13:45 meclizine [From Antivert] Allergy DIZZINESS Verified 10/01/17 13:45 Physical Exam - Constitutional Appears: Well - Head Exam Head Exam: ATRAUMATIC, NORMAL INSPECTION, NORMOCEPHALIC - Eye Exam Eye Exam: EOMI, Normal appearance, PERRL Pupil Exam: NORMAL ACCOMODATION, PERRL - ENT Exam ENT Exam: Mucous Membranes Moist, Normal Exam - Neck Exam Neck exam: Positive for: Normal Inspection - Respiratory Exam Respiratory Exam: Decreased Breath Sounds - Cardiovascular Exam Cardiovascular Exam: REGULAR RHYTHM, +S1, +S2 - GI/Abdominal Exam GI & Abdominal Exam: Diminished Bowel Sounds, Soft - Rectal Exam Rectal Exam: Deferred Results - Vital Signs Recent Vital Signs: Last Vital Signs Temp 97.7 F 10/02/17 07:30 Pulse 67 10/02/17 07:46 Resp 18 10/02/17 07:30 BP 132/78 10/02/17 07:30 Pulse Ox 97 10/02/17 08:00 - Labs Result Diagrams: 10/01/17 14:39 10/01/17 14:39 Labs: Laboratory Results - last 24 hr 10/01/17 10/01/17 10/01/17 14:25 14:39 14:39 WBC 6.0 RBC 4.18 L Hgb 13.9 Hct 40.6 MCV 97.3 H MCH 33.3 H MCHC 34.2 RDW 12.7 Plt Count 153 MPV 7.6 Neut % (Auto) 80.6 H Lymph % (Auto) 11.3 L [place] % (Auto) 7.4 Eos % (Auto) 0.1 Baso % (Auto) 0.6 Neut # (Auto) 4.8 Lymph # (Auto) 0.7 L [place] # (Auto) 0.4 Eos # (Auto) 0.0 Baso # (Auto) 0.0 ESR Sodium 143 Potassium 3.6 Chloride 102 Carbon Dioxide 29 Anion Gap 15 BUN 20 Creatinine 0.7 L Est GFR ( Amer) > 60 Est GFR (Non-Af Amer) > 60 Random Glucose 131 H Calcium 9.2 Total Bilirubin 0.8 AST 28 ALT 30 Alkaline Phosphatase 59 Total Creatine Kinase CK-MB (Mass) Troponin I C-React Prot High Sens Total Protein 6.9 Albumin 4.4 Globulin 2.5 Albumin/Globulin Ratio 1.8 Lipase Vitamin B12 Folate Homocysteine Free T4 TSH 3rd Generation Urine Color Yellow Urine Clarity Clear Urine pH 8.0 Ur Specific [place] 1.014 Urine Protein Negative Urine Glucose (UA) 1+ H Urine Ketones Negative Urine Blood 1+ H Urine Nitrate Negative Urine Bilirubin Negative Urine Urobilinogen Normal Ur Leukocyte Esterase Neg Urine WBC (Auto) 2 Urine RBC (Auto) 2 Grp A Beta Strep Ag 10/01/17 10/01/17 10/02/17 16:54 17:26 07:37 WBC RBC Hgb Hct MCV MCH MCHC RDW Plt Count MPV Neut % (Auto) Lymph % (Auto) [place] % (Auto) Eos % (Auto) Baso % (Auto) Neut # (Auto) Lymph # (Auto) [place] # (Auto) Eos # (Auto) Baso # (Auto) ESR 11 Sodium Potassium Chloride Carbon Dioxide Anion Gap BUN Creatinine Est GFR ( Amer) Est GFR (Non-Af Amer) Random Glucose Calcium Total Bilirubin AST ALT Alkaline Phosphatase Total Creatine Kinase 113 CK-MB (Mass) < 0.22 Troponin I < 0.0120 C-React Prot High Sens Total Protein Albumin Globulin Albumin/Globulin Ratio Lipase 132 Vitamin B12 Folate Homocysteine Free T4 TSH 3rd Generation Urine Color Urine Clarity Urine pH Ur Specific [place] Urine Protein Urine Glucose (UA) Urine Ketones Urine Blood Urine Nitrate Urine Bilirubin Urine Urobilinogen Ur Leukocyte Esterase Urine WBC (Auto) Urine RBC (Auto) Grp A Beta Strep Ag Negative 10/02/17 10/02/17 07:37 07:37 WBC RBC Hgb Hct MCV MCH MCHC RDW Plt Count MPV Neut % (Auto) Lymph % (Auto) [place] % (Auto) Eos % (Auto) Baso % (Auto) Neut # (Auto) Lymph # (Auto) [place] # (Auto) Eos # (Auto) Baso # (Auto) ESR Sodium Potassium Chloride Carbon Dioxide Anion Gap BUN Creatinine Est GFR ( Amer) Est GFR (Non-Af Amer) Random Glucose Calcium Total Bilirubin AST ALT Alkaline Phosphatase Total Creatine Kinase CK-MB (Mass) Troponin I C-React Prot High Sens 0.79 L Total Protein Albumin Globulin Albumin/Globulin Ratio Lipase Vitamin B12 363 Folate 13.3 Homocysteine 7.2 Free T4 1.01 TSH 3rd Generation 5.00 H Urine Color Urine Clarity Urine pH Ur Specific [place] Urine Protein Urine Glucose (UA) Urine Ketones Urine Blood Urine Nitrate Urine Bilirubin Urine Urobilinogen Ur Leukocyte Esterase Urine WBC (Auto) Urine RBC (Auto) Grp A Beta Strep Ag
--- NOTE | 2017-10-02 16:31 | MRI ---
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 TECHNIQUE: Multiplanar, multisequence MR images of the brain were obtained without intravenous contrast enhancement. FINDINGS: HEMORRHAGE: None DWI: No evidence of an acute or early subacute infarction. BRAIN PARENCHYMA: Stable diffuse cerebral atrophy chronic microangiopathy are identified. No interval mass effect. No suspicious extra-axial collection with posterior fossa contents stable in appearance unremarkable. Midline brain anatomy also appears stable. VENTRICLES: Unremarkable. No hydrocephalus. CRANIUM: Unremarkable. ORBITS: Grossly unremarkable. PARANASAL SINUSES/MASTOIDS: Clear VASCULAR SYSTEM: Skull base flow voids intact. OTHER FINDINGS: None. IMPRESSION: Stable age related neuro degenerative changes remain mild with no definite acute intracranial findings including acute or subacute brain infarction at this time.
--- NOTE | 2017-10-02 16:34 | VASCLAB ---
PROCEDURE: HISTORY: assess stenosis COMPARISON: None available. TECHNIQUE: Grayscale and duplex Doppler evaluation of the cervical carotid and vertebral arteries were performed. The common carotid, carotid bifurcations and cervical Internal Carotid Artery (ICA) and proximal External Carotid Artery (ECA) were evaluated. The vertebral arteries were evaluated for gross patency and flow direction. Report prepared by Ally Smith, DANIEL, S FINDINGS: RIGHT CAROTID ARTERIES: 1. Common Carotid Artery: No significant focal plaque formation of the right common carotid artery. Maximum Peak Systolic velocity: 86 cm/sec: End-diastolic velocity 19 cm/sec. 2. Carotid Bifurcation: plaque formation. Maximum Peak Systolic velocity: 110 cm/sec: End-diastolic velocity 20 cm/sec. 3. Internal Carotid Artery: Plaque description: 3.1. Proximal Segment: Peak systolic velocity 105 cm/sec: End-diastolic velocity 31 cm/sec - % stenosis 3.2. Middle Segment: Peak systolic velocity 130 cm/sec: End-diastolic velocity 31 cm/sec - % stenosis 3.3. Distal Segment: Peak systolic velocity 104 cm/sec: End-diastolic velocity 32 cm/sec - % stenosis 4. External Carotid Artery: No significant focal plaque formation. Peak systolic velocity 116 cm/sec 5. ICA/CCA Ratio: 1.4 LEFT CAROTID ARTERIES: 1. Common Carotid Artery: No significant focal plaque formation of the left common carotid artery. Maximum Peak Systolic velocity: 111 cm/sec: End-diastolic velocity 25 cm/sec. 2. Carotid Bifurcation: plaque formation. Maximum Peak Systolic velocity: 94 cm/sec: End-diastolic velocity 20 cm/sec. 3. Internal Carotid Artery: Plaque description: 3.1. Proximal Segment: Peak systolic velocity 92 cm/sec: End-diastolic velocity 23 cm/sec - % stenosis 3.2. Middle Segment: Peak systolic velocity 90 cm/sec: End-diastolic velocity 21 cm/sec - % stenosis 3.3. Distal Segment: Peak systolic velocity 92 cm/sec: End-diastolic velocity 29 cm/sec - % stenosis 4. External Carotid Artery: No significant focal plaque formation. Peak systolic velocity 110 cm/sec 5. ICA/CCA Ratio: 0.8 VERTEBRAL ARTERIES: 1. Right Vertebral Artery: The right vertebral artery flow direction is antegrade. 2. Left Vertebral Artery: The left vertebral artery flow direction is antegrade. OTHER FINDINGS: 1. Right Brachial Blood pressure: 132 mmHg. 2. Left Brachial Blood pressure: 128 mmHg. IMPRESSION: RIGHT: Duplex scan does not suggest hemodynamically significant stenosis of the right extracranial carotid arteries. LEFT: Duplex scan does not suggest hemodynamically significant stenosis of the left extracranial carotid arteries.
--- NOTE | 2017-10-02 16:46 | MRI ---
PROCEDURE: MRI cervical spine dated 10/02/2017. HISTORY: MYELOPATHY - HNP COMPARISON: Comparison made with prior MRI cervical spine dated 03/20/2015. TECHNIQUE: Multiecho multiplanar sequences were performed through the cervical spine without the use of intravenous contrast. FINDINGS: Normal lordotic curvature. Craniocervical junction unremarkable. Vertebral body heights preserved. No marrow signal abnormality. Re- demonstrated is a small elliptical -fusiform shaped focal area of increased T2 signal within the lower cervical spinal cord that measures approximately 9.6mm CC x 3.25 AP mm at the the C7-T1 level that could represent a small syrinx cavity or focal dilatation of the central canal of the spinal cord. This appears stable of when compared with the prior exam. No paraspinal abnormality. . C2-C3: No disc herniation, spinal canal stenosis or neural foraminal narrowing. C3-C4: No disc herniation, spinal canal stenosis or neural foraminal narrowing. C4-C5: No disc herniation, spinal canal stenosis or neural foraminal narrowing. C5-C6: No disc herniation, spinal canal stenosis or neural foraminal narrowing. C6-C7: No disc herniation, spinal canal stenosis or neural foraminal narrowing. C7-T1: No disc herniation, spinal canal stenosis or neural foraminal narrowing. OTHER FINDINGS: There is a small approximately 6.6 mm elliptical shaped hyperintense T2 nodule left lobe thyroid gland. Followup thyroid ultrasound recommended for further evaluation. IMPRESSION: Small stable appearing syrinx and/or focal dilatation of the central canal within the cord at about the C7-T1 unchanged from prior study. Small approximately 6.6 mm elliptical shaped hyperintense T2 nodule left lobe thyroid gland. Followup thyroid ultrasound recommended for further evaluation.
--- NOTE | 2017-10-02 18:21 | CP.PCM.CON ---
History of Present Illness - History of Present Illness History of Present Illness: I was asked to evaluate patient by Dr antony Ayala patient is a 72 year old male with a history of HTN who presents with catalina pain and dizziness. The patient cannot give history has he is currentlysedated after MRI. Cardiac enzymes are negative. Review of Systems - Constitutional Constitutional: absent: As Per HPI, Anorexia, Chills, Daytime Sleepiness, Excessive Sweating, Fatigue, Fever, Frequent Falls, Headache, Increased Appetite , Lethargy, Malaise, Night Sweats, Snoring, Sleep Apnea, Weight Gain, Weight Loss, Weakness, Other - EENT Eyes: absent: As Per HPI, Blind Spots, Blurred Vision, Change in Vision, Decreased Night Vision, Diplopia, Discharge, Dry Eye, Exophthalmos, Floaters, Irritation, Itchy Eyes, Loss of Peripheral Vision, Pain, Photophobia, Requires Corrective Lenses, Sees Flashes, Spots in Vision, Tunnel Vision, Other Visual Disturbances, Loss of Vision, Other Ears: absent: As Per HPI, Decreased Hearing, Ear Discharge, Ear Pain, Tinnitus, Abnormal Hearing, Disequilibrium, Dizziness, Other Nose/Mouth/Throat: absent: As Per HPI, Epistaxis, Nasal Congestion, Nasal Discharge, Nasal Obstruction, Nasal Trauma, Nose Pain, Post Nasal Drip, Sinus Pain, Sinus Pressure, Bleeding Gums, Change in Voice, Dental Pain, Dry Mouth, Dysphagia, Halitosis, Hoarsness, Lip Swelling, Mouth Lesions, Mouth Pain, Odynophagia, Sore Throat, Throat Swelling, Tongue Swelling, Facial Pain, Neck Pain, Neck Mass, Other - Cardiovascular Cardiovascular: Chest Pain - Respiratory Respiratory: absent: As Per HPI, Cough, Dyspnea, Hemoptysis, Dyspnea on Exertion , Wheezing, Snoring, Stridor, Pain on Inspiration, Chest Congestion, Excessive Mucous Production, Change in Mucous Color, Pain with Coughing, Other - Gastrointestinal Gastrointestinal: absent: As Per HPI, Abdominal Pain, Belching, Bloating, Change in Bowel Habits, Change in Stool Character, Coffee Ground Emesis, Constipation, Cramping, Diarrhea, Dyspepsia, Dysphagia, Early Satiety, Excessive Flatus, Fecal Incontinence, Heartburn, Hematemesis, Hematochezia, Loose Stools, Melena, Nausea, Odynophagia, Temesmus, Vomiting, Other - Genitourinary Genitourinary: absent: As Per HPI, Change in Urinary Stream, Difficulty Urinating, Dysuria, Flank Pain, Hematuria, Pyuria, Nocturia, Urinary Incontinence, Urinary Frequency, Urinary Hesitance, Urinary Urgency, Voiding Freq/Small Amts, Freq UTI, Hx Renal/Bladder Calculi, Hx /Renal Surgery, Bladder Distension, Other - Musculoskeletal Musculoskeletal: absent: As Per HPI, Abnormal Gait, Arthralgias, Atrophy, Back Pain, Deformity, Joint Swelling, Limited Range of Motion, Loss of Height, Muscle Cramps, Muscle Weakness, Myalgias, Neck Pain, Numbness, Radiating Pain into Limb, Stiffness, Tingling, Other - Integumentary Integumentary: absent: As Per HPI, Acne, Alopecia, Bleeding Lesions, Change in Hair, Change in Nails, Change in Pigmentation, Changing Lesions, Dry Skin, Erythema, Furuncle, Hirsutism, Lesions, New Lesions, Non-Healing Lesions, Photosensitivity, Pruritus, Rash, Skin Pain, Skin Ulcer, Sores, Striae, Swelling , Unusual Bruising, Wounds, Jaundice, Other - Neurological Neurological: absent: As Per HPI, Abnormal Gait, Abnormal Hearing, Abnormal Movements, Abnormal Speech, Behavioral Changes, Burning Sensations, Confusion, Convulsions, Disequilibrium, Dizziness, Numbness, Focal Weakness, Frequent Falls , Headaches, Lack of Coordination, Loss of Vision, Memory Loss, Paresthesias, Radicular Pain, Restless Legs, Sensory Deficit, Syncope, Tingling, Tremor, Vertigo, Weakness, Other Visual Disturbances, Other - Endocrine Endocrine: absent: As Per HPI, Change in Body Appearance, Change in Libido, Cold Intolorance, Deepening of Voice, Excessive Sweating, Fatigue, Flushing, Heat Intolorance, Increase in Ring/Shoe/Hat Size, Palpitations, Polydipsia, Polyphagia, Polyuria, Other - Hematologic/Lymphatic Hematologic: absent: As Per HPI, Easy Bleeding, Easy Bruising, Lymphadenopathy, Other Past Patient History - Infectious Disease Hx of Infectious Diseases: None - Past Medical History & Family History Past Medical History?: Yes - Past Social History Smoking Status: Never Smoked - CARDIAC Hx Hypercholesterolemia: Yes Hx Hypertension: Yes - PULMONARY Hx Emphysema: Yes - NEUROLOGICAL 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 - HEENT Hx HEENT Problems: No - HEMATOLOGICAL/ONCOLOGICAL Hx Anemia: Yes - MUSCULOSKELETAL/RHEUMATOLOGICAL Hx Falls: No - GASTROINTESTINAL Hx Gastrointestinal Disorders: Yes Hx Gastroesophageal Reflux: Yes Hx Hemorrhoids: Yes - PSYCHIATRIC Hx Anxiety: Yes Hx Substance Use: No - SURGICAL HISTORY Hx Surgeries: Yes Hx Cataract Extraction: Yes (Left eye) Hx Cardiac Catheterization: Yes Other/Comment: HEMORRHOIDECTOMY - ANESTHESIA Hx Anesthesia: Yes Hx Anesthesia Reactions: No Hx Malignant Hyperthermia: No Meds Allergies/Adverse Reactions: Allergies Allergy/AdvReac Type Severity Reaction Status Date / Time Penicillins Allergy Intermediate SWELLING Verified 10/01/17 13:45 aspirin Allergy bleeding Verified 10/01/17 13:45 meclizine [From Antivert] Allergy DIZZINESS Verified 10/01/17 13:45 - Medications Medications: Current Medications Alprazolam (Xanax) 0.5 mg PO BID [facility] Last Admin: 10/02/17 17:51 Dose: Not Given Aspirin (Ecotrin) 81 mg PO DAILY [facility] Diphenhydramine HCl (Benadryl) 25 mg PO TID [facility] Last Admin: 10/02/17 17:51 Dose: Not Given Home Med (Albuterol Sulfate [Proair Respiclick]) 1 applic IH BID [facility] Sodium Chloride (Sodium Chloride 0.9%) 1,000 mls @ 75 mls/hr IV .[id number] [facility] Last Admin: 10/02/17 14:03 Dose: Not Given Losartan Potassium (Cozaar) 50 mg PO DAILY [facility] Last Admin: 10/02/17 10:29 Dose: Not Given Pantoprazole Sodium (Protonix Ec Tab) 40 mg PO DAILY [facility] Last Admin: 10/02/17 10:27 Dose: 40 mg Rosuvastatin Calcium (Crestor) 10 mg PO HS [facility] Last Admin: 10/02/17 14:03 Dose: Not Given Tramadol HCl (Ultram) 50 mg PO Q6 PRN PRN Reason: Pain, moderate (4-7) Last Admin: 10/02/17 15:52 Dose: 50 mg Physical Exam - Constitutional Appears: Non-toxic - Head Exam Head Exam: NORMAL INSPECTION - Eye Exam Eye Exam: Normal appearance - ENT Exam ENT Exam: Mucous Membranes Moist - Neck Exam Neck exam: Positive for: Full Rom - Respiratory Exam Respiratory Exam: Decreased Breath Sounds - Cardiovascular Exam Cardiovascular Exam: REGULAR RHYTHM - GI/Abdominal Exam GI & Abdominal Exam: Normal Bowel Sounds - Rectal Exam Rectal Exam: Deferred - Extremities Exam Extremities exam: Negative for: pedal edema - Back Exam Back exam: NORMAL INSPECTION - Skin Skin Exam: Normal Color Results - Vital Signs Recent Vital Signs: Last Vital Signs Temp 97.8 F 10/02/17 15:00 Pulse 64 10/02/17 15:44 Resp 20 10/02/17 15:00 BP 140/70 10/02/17 15:00 Pulse Ox 97 10/02/17 15:00 - Labs Result Diagrams: 10/01/17 14:39 10/01/17 14:39 Labs: Laboratory Results - last 24 hr 10/02/17 10/02/17 10/02/17 07:37 07:37 07:37 ESR 11 C-React Prot High Sens 0.79 L Vitamin B12 363 Folate 13.3 Homocysteine 7.2 Free T4 1.01 TSH 3rd Generation 5.00 H RPR 10/02/17 07:37 ESR C-React Prot High Sens Vitamin B12 Folate Homocysteine Free T4 TSH 3rd Generation RPR Nonreactive - EKG Data EKG Interpreted by: Myself EKG shows normal: Sinus rhythm Assessment & Plan (1) Chest pain Assessment and Plan: cardaic enzymes are negative. recommend continued medical therapy. echocardiogam reveals normal left ventricular function. Status: Acute (2) Essential (primary) hypertension Assessment and Plan: blood pressure control Status: Chronic
--- NOTE | 2017-10-02 19:17 | CON ---
DATE: 10/02/2017 ATTENDING PHYSICIAN: Loren Ayala MD The patient is in room number 658, bed B. REASON FOR CONSULTATION: Dizziness. CHIEF COMPLAINT: The patient was brought into [facility] with history of progressive dizziness and left eye vision problem. CHIEF COMPLAINT AND HISTORY OF PRESENT ILLNESS: Mr. Rafael Soto is a 72-year-old thinly built male presenting with about a year history of decreasing vision in his left eye, been told cataract, and on followup the patient was told he had a stroke in his eyes twice. He was admitted a few months ago in the hospital and he had a workup during that time. He claims that he has been having dizziness and near syncopal attack for the last 1 year and neck stiffness and tightness. No history of loss of consciousness. The above episode associating with nausea, no vomiting. No history of tingling, numbness of his lower extremities. However, he is complaining of weakness of his whole body. PAST MEDICAL HISTORY: Arthritis, stroke. PERSONAL HISTORY: Denies smoking or alcohol use. ALLERGIES: NO KNOWN ALLERGIES. REVIEW OF SYSTEMS: 12-point systems is being reviewed. From neuro, the patient has chronic progressive dizziness and neck pain, neck discomfort. MEDICATIONS: Cozaar, Crestor, aspirin, pantoprazole, tramadol, alprazolam. PHYSICAL EXAMINATION: VITAL SIGNS: Blood pressure 124/67, mean artery pressure of 86, respiratory rate 16, temperature afebrile. GENERAL: The patient is awake, alert, and oriented to person, place, and time. Speech is clear. Naming, repetition, fluency, comprehension all within normal. Cranial nerve examination: Visual field intact. Pupils reactive to light. Extraocular movement decreased in all direction. No facial sensory deficit. No facial asymmetry. Hearing is normal. Tongue is midline. Good gag. No nystagmus at primary gaze as well as the lateral gaze and upgaze. Motor examination: Outstretched hand with eyes closed, no drift noted. Sensory, tremor noted. Muscle strength is equal in all four extremities. Deep tendon reflexes, hyperreflexic in upper extremities as well as lower extremities with the plantars upgoing on both sides. Sensory examination: Mild decreased position sense, otherwise, no dermatomal sensory loss. Coordination: [id number] dysmetria noted on his left side to compare with the right side. Gait is deferred at this time. Examination of cervical spine, stiffness and some tenderness over trapezius muscle groups on either side. WORKUP: CT of the head reported as no acute pathology. EKG: Normal sinus rhythm. BLOOD WORKUP: WBC 6.0, hemoglobin 13.9, hematocrit 40.6, and platelet 253. Sodium 143, potassium 3.6, chloride 102, bicarbonate 29, BUN 20, creatinine 0.7 with GFR more than 60, glucose 131. Urinalysis is 1+ glucosuria and 1+ hematuria. CONCLUSION: Mr. 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 The patient may have ischemic process in central nervous system which could be a preexisting problem as well. RECOMMENDATIONS: 1. MRI of the brain as well as MRI of the cervical spine to rule out any acute pathology in the brain as well as herniated disk with myelopathy in cervical spine. 2. Fall precaution. 3. Physical therapy. 4. Continue stroke prophylaxis as he has been getting medication per the above. The patient will be followed while he is in the hospital. Dagoberto Wellington MD
--- NOTE | 2017-10-02 22:48 | CARD ---
APPROVED REPORT EKG Measurement Heart [id number] <Conclusion> Normal sinus rhythm Normal ECG
[2017-10-03] MEDS: Sodium Chloride 0.9% 1,000 ML IV SCH ×2 (02:20→17:34)
[2017-10-03] MEDS: Pantoprazole 40 mg EC Tab PO SCH (10:44)
--- NOTE | 2017-10-03 14:53 | CP.PCM.PN ---
Subjective - Date & Time of Evaluation Date of Evaluation: 10/03/17 Time of Evaluation: 10:20 - Subjective Subjective: clinically same Objective - Vital Signs/Intake and Output Vital Signs (last 24 hours): Temp Pulse Resp BP Pulse Ox 98.0 F 75 20 120/67 97 10/03/17 08:39 10/03/17 10:46 10/03/17 08:39 10/03/17 10:46 10/03/17 09:00 Intake and Output: 10/03/17 10/03/17 06:59 18:59 Intake Total 600 Output Total 625 Balance -25 - Medications Medications: Current Medications Albuterol (Ventolin Hfa 90 Mcg/Actuation (8 G)) 1 puff IH BID [facility] Alprazolam (Xanax) 0.5 mg PO BID [facility] Last Admin: 10/03/17 10:44 Dose: 0.5 mg Aspirin (Ecotrin) 81 mg PO DAILY [facility] Last Admin: 10/03/17 14:48 Dose: 81 mg Diphenhydramine HCl (Benadryl) 25 mg PO TID [facility] Last Admin: 10/03/17 13:04 Dose: 25 mg Sodium Chloride (Sodium Chloride 0.9%) 1,000 mls @ 75 mls/hr IV .[id number] [facility] Last Admin: 10/03/17 02:20 Dose: 75 mls/hr Losartan Potassium (Cozaar) 50 mg PO DAILY [facility] Last Admin: 10/03/17 10:44 Dose: Not Given Pantoprazole Sodium (Protonix Ec Tab) 40 mg PO DAILY [facility] Last Admin: 10/03/17 10:44 Dose: 40 mg Rosuvastatin Calcium (Crestor) 10 mg PO HS [facility] Last Admin: 10/02/17 21:56 Dose: 10 mg Tramadol HCl (Ultram) 50 mg PO Q6 PRN PRN Reason: Pain, moderate (4-7) Last Admin: 10/03/17 10:44 Dose: 50 mg - Labs Labs: 10/01/17 14:39 10/01/17 14:39 - Constitutional Appears: Well - Head Exam Head Exam: ATRAUMATIC, NORMAL INSPECTION, NORMOCEPHALIC - Eye Exam Eye Exam: EOMI, Normal appearance, PERRL Pupil Exam: NORMAL ACCOMODATION, PERRL - ENT Exam ENT Exam: Mucous Membranes Moist, Normal Exam - Neck Exam Neck Exam: Full ROM, Normal Inspection. absent: Lymphadenopathy - Respiratory Exam Respiratory Exam: Decreased Breath Sounds - Cardiovascular Exam Cardiovascular Exam: REGULAR RHYTHM, +S1, +S2 - GI/Abdominal Exam GI & Abdominal Exam: Soft, Diminished Bowel Sounds - Rectal Exam Rectal Exam: Deferred
--- NOTE | 2017-10-03 22:33 | CP.PCM.PN ---
Subjective - Date & Time of Evaluation Date of Evaluation: 10/03/17 Time of Evaluation: 14:40 - Subjective Subjective: patient is a 72 year old male with a history of HTN who presents with catalina pain and dizziness. c/o abdominal pain Review of Systems - Constitutional Constitutional: absent: As Per HPI, Anorexia, Chills, Daytime Sleepiness, Excessive Sweating, Fatigue, Fever, Frequent Falls, Headache, Increased Appetite , Lethargy, Malaise, Night Sweats, Snoring, Sleep Apnea, Weight Gain, Weight Loss, Weakness, Other - EENT Eyes: absent: As Per HPI, Blind Spots, Blurred Vision, Change in Vision, Decreased Night Vision, Diplopia, Discharge, Dry Eye, Exophthalmos, Floaters, Irritation, Itchy Eyes, Loss of Peripheral Vision, Pain, Photophobia, Requires Corrective Lenses, Sees Flashes, Spots in Vision, Tunnel Vision, Other Visual Disturbances, Loss of Vision, Other Ears: absent: As Per HPI, Decreased Hearing, Ear Discharge, Ear Pain, Tinnitus, Abnormal Hearing, Disequilibrium, Dizziness, Other Nose/Mouth/Throat: absent: As Per HPI, Epistaxis, Nasal Congestion, Nasal Discharge, Nasal Obstruction, Nasal Trauma, Nose Pain, Post Nasal Drip, Sinus Pain, Sinus Pressure, Bleeding Gums, Change in Voice, Dental Pain, Dry Mouth, Dysphagia, Halitosis, Hoarsness, Lip Swelling, Mouth Lesions, Mouth Pain, Odynophagia, Sore Throat, Throat Swelling, Tongue Swelling, Facial Pain, Neck Pain, Neck Mass, Other - Cardiovascular Cardiovascular: Chest Pain - Respiratory Respiratory: absent: As Per HPI, Cough, Dyspnea, Hemoptysis, Dyspnea on Exertion , Wheezing, Snoring, Stridor, Pain on Inspiration, Chest Congestion, Excessive Mucous Production, Change in Mucous Color, Pain with Coughing, Other - Gastrointestinal Gastrointestinal: absent: As Per HPI, Abdominal Pain, Belching, Bloating, Change in Bowel Habits, Change in Stool Character, Coffee Ground Emesis, Constipation, Cramping, Diarrhea, Dyspepsia, Dysphagia, Early Satiety, Excessive Flatus, Fecal Incontinence, Heartburn, Hematemesis, Hematochezia, Loose Stools, Melena, Nausea, Odynophagia, Temesmus, Vomiting, Other - Genitourinary Genitourinary: absent: As Per HPI, Change in Urinary Stream, Difficulty Urinating, Dysuria, Flank Pain, Hematuria, Pyuria, Nocturia, Urinary Incontinence, Urinary Frequency, Urinary Hesitance, Urinary Urgency, Voiding Freq/Small Amts, Freq UTI, Hx Renal/Bladder Calculi, Hx /Renal Surgery, Bladder Distension, Other - Musculoskeletal Musculoskeletal: absent: As Per HPI, Abnormal Gait, Arthralgias, Atrophy, Back Pain, Deformity, Joint Swelling, Limited Range of Motion, Loss of Height, Muscle Cramps, Muscle Weakness, Myalgias, Neck Pain, Numbness, Radiating Pain into Limb, Stiffness, Tingling, Other - Integumentary Integumentary: absent: As Per HPI, Acne, Alopecia, Bleeding Lesions, Change in Hair, Change in Nails, Change in Pigmentation, Changing Lesions, Dry Skin, Erythema, Furuncle, Hirsutism, Lesions, New Lesions, Non-Healing Lesions, Photosensitivity, Pruritus, Rash, Skin Pain, Skin Ulcer, Sores, Striae, Swelling , Unusual Bruising, Wounds, Jaundice, Other - Neurological Neurological: absent: As Per HPI, Abnormal Gait, Abnormal Hearing, Abnormal Movements, Abnormal Speech, Behavioral Changes, Burning Sensations, Confusion, Convulsions, Disequilibrium, Dizziness, Numbness, Focal Weakness, Frequent Falls , Headaches, Lack of Coordination, Loss of Vision, Memory Loss, Paresthesias, Radicular Pain, Restless Legs, Sensory Deficit, Syncope, Tingling, Tremor, Vertigo, Weakness, Other Visual Disturbances, Other - Endocrine Endocrine: absent: As Per HPI, Change in Body Appearance, Change in Libido, Cold Intolorance, Deepening of Voice, Excessive Sweating, Fatigue, Flushing, Heat Intolorance, Increase in Ring/Shoe/Hat Size, Palpitations, Polydipsia, Polyphagia, Polyuria, Other - Hematologic/Lymphatic Hematologic: absent: As Per HPI, Easy Bleeding, Easy Bruising, Lymphadenopathy, Other Physical Exam - Constitutional Appears: Non-toxic - Head Exam Head Exam: NORMAL INSPECTION - Eye Exam Eye Exam: Normal appearance - ENT Exam ENT Exam: Mucous Membranes Moist - Neck Exam Neck exam: Positive for: Full Rom - Respiratory Exam Respiratory Exam: Decreased Breath Sounds - Cardiovascular Exam Cardiovascular Exam: REGULAR RHYTHM - GI/Abdominal Exam GI & Abdominal Exam: Normal Bowel Sounds - Rectal Exam Rectal Exam: Deferred - Extremities Exam Extremities exam: Negative for: pedal edema - Back Exam Back exam: NORMAL INSPECTION - Skin Skin Exam: Normal Color Objective - Vital Signs/Intake and Output Vital Signs (last 24 hours): Temp Pulse Resp BP Pulse Ox 97.9 F 63 20 101/60 97 10/03/17 15:29 10/03/17 16:18 10/03/17 15:29 10/03/17 15:29 10/03/17 16:18 Intake and Output: 10/03/17 10/04/17 18:59 06:59 Output Total 100 150 Balance -100 -150 - Medications Medications: Current Medications Albuterol (Ventolin Hfa 90 Mcg/Actuation (8 G)) 1 puff IH BID [facility] Alprazolam (Xanax) 0.5 mg PO BID [facility] Last Admin: 10/03/17 17:35 Dose: Not Given Aspirin (Ecotrin) 81 mg PO DAILY [facility] Last Admin: 10/03/17 14:48 Dose: 81 mg Diphenhydramine HCl (Benadryl) 25 mg PO TID [facility] Last Admin: 10/03/17 17:34 Dose: 25 mg Sodium Chloride (Sodium Chloride 0.9%) 1,000 mls @ 75 mls/hr IV .[id number] [facility] Last Admin: 10/03/17 17:34 Dose: 75 mls/hr Losartan Potassium (Cozaar) 50 mg PO DAILY [facility] Last Admin: 10/03/17 10:44 Dose: Not Given Pantoprazole Sodium (Protonix Ec Tab) 40 mg PO DAILY [facility] Last Admin: 10/03/17 10:44 Dose: 40 mg Rosuvastatin Calcium (Crestor) 10 mg PO HS [facility] Last Admin: 10/03/17 21:42 Dose: 10 mg Tramadol HCl (Ultram) 50 mg PO Q6 PRN PRN Reason: Pain, moderate (4-7) Last Admin: 10/03/17 10:44 Dose: 50 mg - Labs Labs: 10/01/17 14:39 10/01/17 14:39 Assessment and Plan - Assessment and Plan (Free Text) Assessment: (1) Chest pain Assessment and Plan: cardaic enzymes are negative. recommend continued medical therapy. echocardiogam reveals normal left ventricular function. Status: Acute (2) Essential (primary) hypertension Assessment and Plan: blood pressure control Status: Chronic (3) Abdominal pain Assessment and Plan: Check US abdomen Status: Acute (2) Dizziness Assessment and Plan: Neuro eval in progress Status: Chronic
[2017-10-04] MEDS: Sodium Chloride 0.9% 1,000 ML IV SCH ×2 (06:18→19:00)
[2017-10-04] MEDS: Pantoprazole 40 mg EC Tab PO SCH (10:43)
--- NOTE | 2017-10-04 13:44 | US ---
HISTORY: Abdominal pain COMPARISON: CT abdomen and pelvis from 10/01/2017 TECHNIQUE: Grayscale imaging was performed. FINDINGS: LIVER: Measures 12.3 cm. Normal echogenicity of the liver parenchyma. No mass. No intrahepatic bile duct dilatation. GALLBLADDER: There are no gallstones, wall thickening or pericholecystic fluid. The sonographic Cruz's sign is negative. COMMON BILE DUCT: Measures 4.2 mm. No stones. No dilatation. PANCREAS: Limited evaluation. No ductal dilatation or bulky mass. RIGHT KIDNEY: Measures 9.3cm. Normal echogenicity. [place], or hydronephrosis. There is a 4 mm nonobstructing stone in the interpolar region. There is a 5 mm parapelvic cyst in the interpolar region. LEFT KIDNEY: Measures 10.1cm. Normal echogenicity. No mass, or hydronephrosis. There is a 9 x 8 x 10 mm nonobstructing stone in the upper pole and 8 x 3 x 6 mm nonobstructing stone in the interpolar region. SPLEEN: Not visualized. AORTA: No aneurysmal dilatation. IVC: Unremarkable. OTHER FINDINGS: None. IMPRESSION: 4 mm nonobstructing stone in the interpolar region of the right kidney, 10 mm nonobstructing stone in the upper pole of the left kidney an 8 mm nonobstructing stone in the interpolar region of the left kidney. No hydronephrosis. The spleen is not visualized.
--- NOTE | 2017-10-04 15:56 | CP.PCM.PN ---
Subjective - Date & Time of Evaluation Date of Evaluation: 10/04/17 Time of Evaluation: 10:40 - Subjective Subjective: clinically same Objective - Vital Signs/Intake and Output Vital Signs (last 24 hours): Temp Pulse Resp BP Pulse Ox 97.9 F 71 20 144/72 97 10/04/17 07:45 10/04/17 07:45 10/04/17 07:45 10/04/17 07:45 10/04/17 12:08 Intake and Output: 10/04/17 10/04/17 06:59 18:59 Intake Total 700 Output Total 950 Balance -250 - Medications Medications: Current Medications Albuterol (Ventolin Hfa 90 Mcg/Actuation (8 G)) 1 puff IH BID [facility] Alprazolam (Xanax) 0.5 mg PO BID [facility] Last Admin: 10/04/17 10:40 Dose: 0.5 mg Aspirin (Ecotrin) 81 mg PO DAILY [facility] Last Admin: 10/04/17 10:43 Dose: 81 mg Diphenhydramine HCl (Benadryl) 25 mg PO TID [facility] Last Admin: 10/04/17 13:44 Dose: Not Given Sodium Chloride (Sodium Chloride 0.9%) 1,000 mls @ 75 mls/hr IV .[id number] [facility] Last Admin: 10/04/17 06:18 Dose: 75 mls/hr Losartan Potassium (Cozaar) 50 mg PO DAILY [facility] Last Admin: 10/04/17 10:44 Dose: Not Given Pantoprazole Sodium (Protonix Ec Tab) 40 mg PO DAILY [facility] Last Admin: 10/04/17 10:43 Dose: 40 mg Rosuvastatin Calcium (Crestor) 10 mg PO HS [facility] Last Admin: 10/03/17 21:42 Dose: 10 mg Tramadol HCl (Ultram) 50 mg PO Q6 PRN PRN Reason: Pain, moderate (4-7) Last Admin: 10/04/17 10:41 Dose: 50 mg - Labs Labs: 10/01/17 14:39 10/01/17 14:39 - Constitutional Appears: Well - Head Exam Head Exam: ATRAUMATIC, NORMAL INSPECTION, NORMOCEPHALIC - Eye Exam Eye Exam: EOMI, Normal appearance, PERRL Pupil Exam: NORMAL ACCOMODATION, PERRL - ENT Exam ENT Exam: Mucous Membranes Moist, Normal Exam - Neck Exam Neck Exam: Full ROM, Normal Inspection. absent: Lymphadenopathy - Respiratory Exam Respiratory Exam: Decreased Breath Sounds - Cardiovascular Exam Cardiovascular Exam: REGULAR RHYTHM, +S1, +S2 - GI/Abdominal Exam GI & Abdominal Exam: Soft, Diminished Bowel Sounds - Rectal Exam Rectal Exam: Deferred
--- NOTE | 2017-10-04 21:59 | EEG ---
DATE: 10/04/2017 ELECTROENCEPHALOGRAPHIC REPORT This is a 16-channel electroencephalogram of awake and drowsy adult. During the study, photic stimulation was performed. Hyperventilation was not performed. The resting electroencephalogram consists of 9-11 Hz, 30 to 40 microvolt alpha activities diffusely seen in parietal and occipital leads. On eye opening, symmetrical attenuating alpha activities noted. These activities followed by at times 4-5 Hz of theta activities which consistent with early drowsiness. The photic stimulation did not evoke driving response noted at 2 to 20 Hz. IMPRESSION: This is a normal electroencephalogram for his age. During the study, neither electroencephalographic paroxysmal activities nor focal slowing noted. Dagoberto Wellington MD
--- NOTE | 2017-10-04 22:50 | CP.PCM.PN ---
Subjective - Date & Time of Evaluation Date of Evaluation: 10/04/17 Time of Evaluation: 19:10 - Subjective Subjective: Patient seen and evaluated Denies chest pain and dyspnea Objective - Vital Signs/Intake and Output Vital Signs (last 24 hours): Temp Pulse Resp BP Pulse Ox 98.0 F 72 20 150/90 99 10/04/17 15:35 10/04/17 16:00 10/04/17 15:35 10/04/17 15:35 10/04/17 15:35 - Medications Medications: Current Medications Albuterol (Ventolin Hfa 90 Mcg/Actuation (8 G)) 1 puff IH BID [facility] Alprazolam (Xanax) 0.5 mg PO BID [facility] Last Admin: 10/04/17 18:30 Dose: Not Given Aspirin (Ecotrin) 81 mg PO DAILY [facility] Last Admin: 10/04/17 10:43 Dose: 81 mg Diphenhydramine HCl (Benadryl) 25 mg PO TID [facility] Last Admin: 10/04/17 17:41 Dose: 25 mg Sodium Chloride (Sodium Chloride 0.9%) 1,000 mls @ 75 mls/hr IV .[id number] [facility] Last Admin: 10/04/17 19:00 Dose: Not Given Losartan Potassium (Cozaar) 50 mg PO DAILY [facility] Last Admin: 10/04/17 10:44 Dose: Not Given Pantoprazole Sodium (Protonix Ec Tab) 40 mg PO DAILY [facility] Last Admin: 10/04/17 10:43 Dose: 40 mg Rosuvastatin Calcium (Crestor) 10 mg PO HS [facility] Last Admin: 10/04/17 21:45 Dose: 10 mg Tramadol HCl (Ultram) 50 mg PO Q6 PRN PRN Reason: Pain, moderate (4-7) Last Admin: 10/04/17 17:40 Dose: 50 mg - Labs Labs: 10/01/17 14:39 10/01/17 14:39
--- NOTE | 2017-10-05 08:28 | CP.PCM.PN ---
Subjective - Date & Time of Evaluation Date of Evaluation: 10/05/17 Time of Evaluation: 10:06 - Subjective Subjective: PGY 3 Medicine Note- Dr. Ayala's service Patient seen and examined in no acute distress. Patient stated that he requires a rolling walker to ambulate to the bathroom. Patient states that he still has intermittent abdominal discomfort. He reiterated his history of present illness with regards to intermittent dizziness . He currently admits to right sided flank pain. He denies chest pain, dyspnea or headaches at this time. Objective - Vital Signs/Intake and Output Vital Signs (last 24 hours): Temp Pulse Resp BP Pulse Ox 98.1 F 78 18 140/73 98 10/05/17 07:10 10/05/17 07:10 10/05/17 07:10 10/05/17 07:10 10/05/17 07:10 Intake and Output: 10/05/17 10/05/17 06:59 18:59 Output Total 1150 Balance -1150 - Medications Medications: Current Medications Albuterol (Ventolin Hfa 90 Mcg/Actuation (8 G)) 1 puff IH BID [facility] Alprazolam (Xanax) 0.5 mg PO BID [facility] Last Admin: 10/04/17 18:30 Dose: Not Given Aspirin (Ecotrin) 81 mg PO DAILY [facility] Last Admin: 10/04/17 10:43 Dose: 81 mg Diphenhydramine HCl (Benadryl) 25 mg PO TID [facility] Last Admin: 10/04/17 17:41 Dose: 25 mg Losartan Potassium (Cozaar) 50 mg PO DAILY [facility] Last Admin: 10/04/17 10:44 Dose: Not Given Pantoprazole Sodium (Protonix Ec Tab) 40 mg PO DAILY [facility] Last Admin: 10/04/17 10:43 Dose: 40 mg Rosuvastatin Calcium (Crestor) 10 mg PO HS [facility] Last Admin: 10/04/17 21:45 Dose: 10 mg Tramadol HCl (Ultram) 50 mg PO Q6 PRN PRN Reason: Pain, moderate (4-7) Last Admin: 10/04/17 17:40 Dose: 50 mg - Labs Labs: 10/01/17 14:39 10/01/17 14:39 - Constitutional Appears: Non-toxic, No Acute Distress - Head Exam Head Exam: ATRAUMATIC, NORMAL INSPECTION - Eye Exam Eye Exam: EOMI - ENT Exam ENT Exam: Mucous Membranes Moist - Neck Exam Neck Exam: Full ROM, Tenderness (posteriorly) - Respiratory Exam Respiratory Exam: NORMAL BREATHING PATTERN - Cardiovascular Exam Cardiovascular Exam: +S1, +S2 - GI/Abdominal Exam GI & Abdominal Exam: Soft, Tenderness (right sided flank), Normal Bowel Sounds - Extremities Exam Extremities Exam: absent: Pedal Edema - Neurological Exam Neurological Exam: Alert, Awake, Oriented x3 - Psychiatric Exam Psychiatric exam: Normal Affect, Normal Mood - Skin Skin Exam: Normal Color, Warm Assessment and Plan (1) Near syncope Assessment & Plan: MRI of cervical spine- small stable appearing syrinx and or focal dilatation of the central canal within the cord at approx C7-T1. Thyroid nodule noted as well. Per [facility], Dr. Martínez- Echo reveals normal LV function Neuro recommendations- gait training Head CT negative Carotid dopplers- negative Brain MRI- Stable age related neuro degenerative changes Status: Acute (2) HTN (hypertension) Assessment & Plan: Losartan 50 mg PO daily Status: Acute (3) Nephrolithiasis Assessment & Plan: Pain control Stones noted on imaging. These are not new findings. Patient follows with Urologist Dr. Prather per primary. Status: Acute (4) Hypothyroidism Assessment & Plan: Recommendations for thyroid ultrasound to be obtained outpatient Will evaluate symptoms. Recommendations to begin therapy Status: Acute (5) Hip pain Assessment & Plan: Chronic degenerative changes noted. PT/OT evaluation- Home PT with services Status: Acute (6) Prophylactic measure Assessment & Plan: PPI daily Status: Acute - Assessment and Plan (Free Text) Assessment: Dispo- Optimize with physical therapy and then discharge home with ambulatory device.
[2017-10-05] MEDS: Pantoprazole 40 mg EC Tab PO SCH (09:20)
--- NOTE | 2017-10-05 10:38 | CARD ---
APPROVED REPORT EXAM: Two-dimensional and M-mode echocardiogram with Doppler and color Doppler. Other Information Quality : GoodRhythm : INDICATION CVA/TIA LV Function:SystolicDiastolic Chest Pain Syncope RISK FACTORS Hypertension 2D DIMENSIONS IVSd0.8 (0.7-1.1cm)LVDd4.2 (3.9-5.9cm) PWd1.1 (0.7-1.1cm)LVDs3.3 (2.5-4.0cm) FS (%) 20.7 %LVEF (%)50.0 (>50%) M-Mode DIMENSIONS Left Atrium (MM)3.02 (2.5-4.0cm)IVSd1.01 (0.7-1.1cm) Aortic Root3.85 (2.2-3.7cm)LVDd4.98 (4.0-5.6cm) Aortic Cusp Exc.2.42 (1.5-2.0cm)PWd0.99 (0.7-1.1cm) FS (%) 28 %LVDs3.57 (2.0-3.8cm) LVEF (%)54 (>50%) Mitral Valve MV E Miebxkdc26.1cm/sMV A Mbkyvkub080.5cm/sE/A ratio0.6 TDI E/Lateral E'0.0E/Medial E'0.0 Tricuspid Valve TR Peak Pttmnlsi235tg/sTR Peak Gr.[id number] LEFT VENTRICLE The left ventricle is normal size. There is normal left ventricular wall thickness. The left ventricular function is normal. The left ventricular ejection fraction is within the normal range. No regional wall motion abnormalities noted. Transmitral Doppler flow pattern is Grade I-abnormal relaxation pattern.Normal lv filling pressure No left ventricle thrombus noted on this study. There is no ventricular septal defect visualized. There is no left ventricular aneurysm. There is no mass noted in the left ventricle. RIGHT VENTRICLE The right ventricle is normal size. There is normal right ventricular wall thickness. The right ventricular systolic function is normal. ATRIA The left atrium size is normal. The right atrium size is normal. The interatrial septum is intact with no evidence for an atrial septal defect. AORTIC VALVE The aortic valve is normal in structure and function. No aortic regurgitation is present. There is no aortic valvular stenosis. There is no aortic valvular vegetation. MITRAL VALVE The mitral valve is normal in structure and function. There is no evidence of mitral valve prolapse. There is no mitral valve stenosis. Mitral regurgitation is mild. TRICUSPID VALVE The tricuspid valve is normal in structure and function. There is mild tricuspid regurgitation. There is no tricuspid valve prolapse or vegetation. There is no tricuspid valve stenosis. PULMONIC VALVE The pulmonary valve is normal in structure and function. There is no pulmonic valvular regurgitation. There is no pulmonic valvular stenosis. GREAT VESSELS The aortic root is normal in size. The ascending aorta is normal in size. The pulmonary artery is normal. The IVC is normal in size and collapses >50% with inspiration. PERICARDIAL EFFUSION The pericardium appears normal. There is no pleural effusion. <Conclusion> The left ventricular function is normal. The left ventricular ejection fraction is within the normal range. No regional wall motion abnormalities noted. Transmitral Doppler flow pattern is Grade I-abnormal relaxation pattern.Normal lv filling pressure Mitral regurgitation is mild.
--- NOTE | 2017-10-05 13:00 | PN ---
DATE: 10/05/2017 TIME OF EVALUATION: 6:50 a.m. NEUROLOGICAL PROBLEM: Myelopathy with balance dysfunction. PHYSICAL EXAMINATION: VITAL SIGNS: Blood pressure 119/79, mean arterial pressure of 92, respiratory rate 16, temperature 98 degree Fahrenheit. The patient is still complaining of some lightheadedness with tenderness with pain. Rest of the examination is unchanged. The patient is calling urologist. He has been seeing urologist for the same problem. From neurologic point of view, the patient is stable. 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 All he needs is gait training and ambulatory only with assistance. We will be signing off from followup. Dagoberto Wellington MD
--- NOTE | 2017-10-05 15:17 | RAD ---
PROCEDURE: Pelvis right hip HISTORY: Pain. No history of recent/ related trauma provided COMPARISON: None TECHNIQUE: Standard protocol for this study/examination. FINDINGS: There are no osseous abnormalities to suggest fracture. The pelvic ring is intact. Preserved femoral-acetabular relationship. Negative study for protrusio, subluxation or dislocation. Degenerative changes: Bilateral hips left greater than right IMPRESSION: No acute findings related to/accounting for the clinical presentation.
[2017-10-05] MEDS: Enoxaparin 40 mg Syringe SC SCH (17:36)
--- NOTE | 2017-10-05 21:00 | CP.PCM.PN ---
Subjective - Date & Time of Evaluation Date of Evaluation: 10/05/17 Time of Evaluation: 11:20 - Subjective Subjective: clinically same Objective - Vital Signs/Intake and Output Vital Signs (last 24 hours): Temp Pulse Resp BP Pulse Ox 97.7 F 74 20 117/74 98 10/05/17 15:00 10/05/17 15:00 10/05/17 15:00 10/05/17 15:00 10/05/17 16:00 - Medications Medications: Current Medications Albuterol (Ventolin Hfa 90 Mcg/Actuation (8 G)) 1 puff IH BID [facility] Alprazolam (Xanax) 0.5 mg PO BID [facility] Last Admin: 10/05/17 17:36 Dose: 0.5 mg Aspirin (Ecotrin) 81 mg PO DAILY [facility] Last Admin: 10/05/17 14:50 Dose: 81 mg Diphenhydramine HCl (Benadryl) 25 mg PO TID [facility] Last Admin: 10/05/17 17:35 Dose: 25 mg Enoxaparin Sodium (Lovenox) 40 mg SC DAILY [facility] Last Admin: 10/05/17 17:36 Dose: 40 mg Losartan Potassium (Cozaar) 50 mg PO DAILY [facility] Last Admin: 10/05/17 09:20 Dose: 50 mg Pantoprazole Sodium (Protonix Ec Tab) 40 mg PO DAILY [facility] Last Admin: 10/05/17 09:20 Dose: 40 mg Rosuvastatin Calcium (Crestor) 10 mg PO HS [facility] Last Admin: 10/04/17 21:45 Dose: 10 mg Tramadol HCl (Ultram) 50 mg PO Q6 PRN PRN Reason: Pain, moderate (4-7) Last Admin: 10/05/17 09:30 Dose: 50 mg - Labs Labs: 10/01/17 14:39 10/01/17 14:39 - Constitutional Appears: Well - Head Exam Head Exam: ATRAUMATIC, NORMAL INSPECTION, NORMOCEPHALIC - Eye Exam Eye Exam: EOMI, Normal appearance, PERRL Pupil Exam: NORMAL ACCOMODATION, PERRL - ENT Exam ENT Exam: Mucous Membranes Moist, Normal Exam - Neck Exam Neck Exam: Full ROM, Normal Inspection. absent: Lymphadenopathy - Respiratory Exam Respiratory Exam: Decreased Breath Sounds - Cardiovascular Exam Cardiovascular Exam: REGULAR RHYTHM, +S1, +S2 - GI/Abdominal Exam GI & Abdominal Exam: Soft, Diminished Bowel Sounds - Rectal Exam Rectal Exam: Deferred
--- NOTE | 2017-10-06 07:54 | CP.PCM.PN ---
Subjective - Date & Time of Evaluation Date of Evaluation: 10/06/17 Time of Evaluation: 07:05 - Subjective Subjective: PGY 3 Medicine Note- Dr. Ayala's service Patient seen and examined at bedside, in no acute distress. Patient stated that he requires a rolling walker to ambulate to the bathroom. He reports intermittent nausea over the past 2 years. He was previously treated by Dr. Gillespie for kidney stones, but has not followed up with him in 2yrs. Instead, he has been attempting home remedies. Reports continued R flank pain and dizziness. Denies f/c, change in vision, chest pain, SOB, abdominal pain, or any additional acute complaints. Objective - Vital Signs/Intake and Output Vital Signs (last 24 hours): Temp Pulse Resp BP Pulse Ox 97.8 F 71 20 96/55 L 97 10/06/17 04:00 10/06/17 04:10 10/06/17 04:00 10/06/17 04:00 10/06/17 04:00 - Medications Medications: Current Medications Albuterol (Ventolin Hfa 90 Mcg/Actuation (8 G)) 1 puff IH BID [facility] Alprazolam (Xanax) 0.5 mg PO BID [facility] Last Admin: 10/05/17 17:36 Dose: 0.5 mg Aspirin (Ecotrin) 81 mg PO DAILY [facility] Last Admin: 10/05/17 14:50 Dose: 81 mg Diphenhydramine HCl (Benadryl) 25 mg PO TID [facility] Last Admin: 10/05/17 17:35 Dose: 25 mg Enoxaparin Sodium (Lovenox) 40 mg SC DAILY [facility] Last Admin: 10/05/17 17:36 Dose: 40 mg Losartan Potassium (Cozaar) 50 mg PO DAILY [facility] Last Admin: 10/05/17 09:20 Dose: 50 mg Pantoprazole Sodium (Protonix Ec Tab) 40 mg PO DAILY [facility] Last Admin: 10/05/17 09:20 Dose: 40 mg Rosuvastatin Calcium (Crestor) 10 mg PO HS [facility] Last Admin: 10/05/17 21:41 Dose: 10 mg Tramadol HCl (Ultram) 50 mg PO Q6 PRN PRN Reason: Pain, moderate (4-7) Last Admin: 10/05/17 09:30 Dose: 50 mg - Labs Labs: 10/01/17 14:39 06/21/18 14:39 - Additional Findings Additional findings: - Constitutional Appears: Non-toxic, No Acute Distress - Head Exam Head Exam: ATRAUMATIC, NORMAL INSPECTION - Eye Exam Eye Exam: EOMI - ENT Exam ENT Exam: Mucous Membranes Moist - Neck Exam Neck Exam: Full ROM, Tenderness (posteriorly) - Respiratory Exam Respiratory Exam: NORMAL BREATHING PATTERN - Cardiovascular Exam Cardiovascular Exam: +S1, +S2 - GI/Abdominal Exam GI & Abdominal Exam: Soft, Tenderness (right sided flank), Normal Bowel Sounds - Extremities Exam Extremities Exam: absent: Pedal Edema - Neurological Exam Neurological Exam: Alert, Awake, Oriented x3 - Psychiatric Exam Psychiatric exam: Normal Affect, Normal Mood - Skin Skin Exam: Normal Color, Warm Assessment and Plan - Assessment and Plan (Free Text) Assessment: (1) Near syncope Assessment & Plan: 10/06: Neuro reports syrinx is a chronic stable finding; signing off. MRI of cervical spine- small stable appearing syrinx and or focal dilatation of the central canal within the cord at approx C7-T1. Thyroid nodule noted as well. Per Color Sprayer, Dr. Martínez- Echo reveals normal LV function Neuro recommendations- gait training Head CT negative Carotid dopplers- negative Brain MRI- Stable age related neuro degenerative changes Status: Acute (2) HTN (hypertension) Assessment & Plan: Losartan 50 mg PO daily Status: Acute (3) Nephrolithiasis Assessment & Plan: 10/06: pt last saw Dr. Prather over 2 years ago. Since then, he has been attempting home remedies for his kidney stones. Abd US with 4mm R stone and 10mm L stone, non-obstructing. Pt is in significant pain today, with nausea and one episode of vomit. Will D/C with toradol 10mg PO TID PRN x10d. (4) Hypothyroidism Assessment & Plan: Recommendations for thyroid ultrasound to be obtained outpatient Will evaluate symptoms. Recommendations to begin therapy Status: Acute (5) Hip pain Assessment & Plan: Chronic degenerative changes noted. PT/OT evaluation- Home PT with services Status: Acute (6) Prophylactic measure Assessment & Plan: PPI daily Status: Acute Dispo- [facility] with physical therapy and then discharge home with ambulatory device and home PT on 10/06/17. pt does not want to go to [facility].
[2017-10-06] MEDS: Enoxaparin 40 mg Syringe SC SCH (10:08)
[2017-10-06] MEDS: Pantoprazole 40 mg EC Tab PO SCH (10:08)
--- NOTE | 2017-10-06 10:56 | CON ---
DATE: 10/04/2017 TIME OF EVALUATION: 3 p.m. NEUROLOGICAL PROBLEM: Gait disturbances and dizziness. PHYSICAL EXAMINATION: VITAL SIGNS: Blood pressure 144/72, mean arterial pressure of 96, respiratory rate 18, temperature 97.9, pulse rate 79. GENERAL: The patient is awake, alert, comfortably lying down in the bed. No new complaints. Examination consistent with myelopathy. MRI of the cervical spine showed C7-T1 region syringomyelia. On comparing with the previous MRI as per the report, no new changes. 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 Electroencephalogram shows normal for his age. There is no focal swelling noted. RECOMMENDATION: Continue the present management, fall precaution, physical therapy. From a neurological point of view, the patient is stable. The patient can be following me as outpatient for further management regarding her gait disturbances as well as further syringomyelia. Dagoberto Wellington MD
--- NOTE | 2017-10-06 12:53 | CP.PCM.PN ---
Subjective - Date & Time of Evaluation Date of Evaluation: 10/06/17 Time of Evaluation: 12:20 - Subjective Subjective: clinically same Objective - Vital Signs/Intake and Output Vital Signs (last 24 hours): Temp Pulse Resp BP Pulse Ox 98.0 F 81 20 101/62 96 10/06/17 07:10 10/06/17 08:01 10/06/17 07:10 10/06/17 07:10 10/06/17 08:10 - Medications Medications: Current Medications Albuterol (Ventolin Hfa 90 Mcg/Actuation (8 G)) 1 puff IH BID [facility] Alprazolam (Xanax) 0.5 mg PO BID [facility] Last Admin: 10/06/17 10:08 Dose: 0.5 mg Aspirin (Ecotrin) 81 mg PO DAILY [facility] Last Admin: 10/06/17 10:08 Dose: 81 mg Diphenhydramine HCl (Benadryl) 25 mg PO TID [facility] Last Admin: 10/06/17 10:08 Dose: 25 mg Enoxaparin Sodium (Lovenox) 40 mg SC DAILY [facility] Last Admin: 10/06/17 10:08 Dose: 40 mg Losartan Potassium (Cozaar) 50 mg PO DAILY [facility] Last Admin: 10/06/17 10:08 Dose: Not Given Pantoprazole Sodium (Protonix Ec Tab) 40 mg PO DAILY [facility] Last Admin: 10/06/17 10:08 Dose: 40 mg Rosuvastatin Calcium (Crestor) 10 mg PO HS [facility] Last Admin: 10/05/17 21:41 Dose: 10 mg Tramadol HCl (Ultram) 50 mg PO Q6 PRN PRN Reason: Pain, moderate (4-7) Last Admin: 10/05/17 09:30 Dose: 50 mg - Labs Labs: 10/01/17 14:39 10/01/17 14:39 - Constitutional Appears: Well - Head Exam Head Exam: ATRAUMATIC, NORMAL INSPECTION, NORMOCEPHALIC - Eye Exam Eye Exam: EOMI, Normal appearance, PERRL Pupil Exam: NORMAL ACCOMODATION, PERRL - ENT Exam ENT Exam: Mucous Membranes Moist, Normal Exam - Neck Exam Neck Exam: Full ROM, Normal Inspection. absent: Lymphadenopathy - Respiratory Exam Respiratory Exam: Decreased Breath Sounds - Cardiovascular Exam Cardiovascular Exam: REGULAR RHYTHM, +S1, +S2 - GI/Abdominal Exam GI & Abdominal Exam: Soft, Diminished Bowel Sounds - Rectal Exam Rectal Exam: Deferred
--- NOTE | 2017-10-07 00:15 | CP.PCM.PN ---
Subjective - Date & Time of Evaluation Date of Evaluation: 10/05/17 Time of Evaluation: 16:05 Objective - Vital Signs/Intake and Output Vital Signs (last 24 hours): Temp Pulse Resp BP Pulse Ox 97.4 F L 70 20 107/66 99 10/06/17 15:01 10/06/17 16:00 10/06/17 15:01 10/06/17 15:01 10/06/17 23:38 Intake and Output: 10/06/17 10/07/17 18:59 06:59 Intake Total 400 600 Output Total 1200 Balance -800 600 - Medications Medications: Current Medications Albuterol (Ventolin Hfa 90 Mcg/Actuation (8 G)) 1 puff IH BID [facility] Alprazolam (Xanax) 0.5 mg PO BID [facility] Last Admin: 10/06/17 17:59 Dose: 0.5 mg Aspirin (Ecotrin) 81 mg PO DAILY [facility] Last Admin: 10/06/17 10:08 Dose: 81 mg Diphenhydramine HCl (Benadryl) 25 mg PO TID [facility] Last Admin: 10/06/17 17:59 Dose: 25 mg Enoxaparin Sodium (Lovenox) 40 mg SC DAILY [facility] Last Admin: 10/06/17 10:08 Dose: 40 mg Losartan Potassium (Cozaar) 50 mg PO DAILY [facility] Last Admin: 10/06/17 10:08 Dose: Not Given Pantoprazole Sodium (Protonix Ec Tab) 40 mg PO DAILY [facility] Last Admin: 10/06/17 10:08 Dose: 40 mg Rosuvastatin Calcium (Crestor) 10 mg PO HS [facility] Last Admin: 10/06/17 21:11 Dose: 10 mg Tramadol HCl (Ultram) 50 mg PO Q6 PRN PRN Reason: Pain, moderate (4-7) Last Admin: 10/06/17 21:13 Dose: 50 mg - Labs Labs: 10/01/17 14:39 10/01/17 14:39
--- NOTE | 2017-10-07 00:17 | CP.PCM.PN ---
Subjective - Date & Time of Evaluation Date of Evaluation: 10/06/17 Time of Evaluation: 14:20 Objective - Vital Signs/Intake and Output Vital Signs (last 24 hours): Temp Pulse Resp BP Pulse Ox 97.4 F L 70 20 107/66 99 10/06/17 15:01 10/06/17 16:00 10/06/17 15:01 10/06/17 15:01 10/06/17 23:38 Intake and Output: 10/06/17 10/07/17 18:59 06:59 Intake Total 400 600 Output Total 1200 Balance -800 600 - Medications Medications: Current Medications Albuterol (Ventolin Hfa 90 Mcg/Actuation (8 G)) 1 puff IH BID [facility] Alprazolam (Xanax) 0.5 mg PO BID [facility] Last Admin: 10/06/17 17:59 Dose: 0.5 mg Aspirin (Ecotrin) 81 mg PO DAILY [facility] Last Admin: 10/06/17 10:08 Dose: 81 mg Diphenhydramine HCl (Benadryl) 25 mg PO TID [facility] Last Admin: 10/06/17 17:59 Dose: 25 mg Enoxaparin Sodium (Lovenox) 40 mg SC DAILY [facility] Last Admin: 10/06/17 10:08 Dose: 40 mg Losartan Potassium (Cozaar) 50 mg PO DAILY [facility] Last Admin: 10/06/17 10:08 Dose: Not Given Pantoprazole Sodium (Protonix Ec Tab) 40 mg PO DAILY [facility] Last Admin: 10/06/17 10:08 Dose: 40 mg Rosuvastatin Calcium (Crestor) 10 mg PO HS [facility] Last Admin: 10/06/17 21:11 Dose: 10 mg Tramadol HCl (Ultram) 50 mg PO Q6 PRN PRN Reason: Pain, moderate (4-7) Last Admin: 10/06/17 21:13 Dose: 50 mg - Labs Labs: 10/01/17 14:39 10/01/17 14:39
[2017-10-07 06:50] LABS: ALB/GLOB RATIO 1.5 (1.0-2.1); ALT/SGPT 35 U/L (21-72); AST/SGOT 33 U/L (17-59); BLOOD UREA NITROGEN 25 mg/dL (9-20); CALCIUM 8.9 mg/dl (8.6-10.4); GFR AFRICAN-AMERICAN > 60; GFR NON-AFRICAN AMERICAN > 60
[2017-10-07 06:51] LABS: BASO % 0.4 % (0.0-2.0); EOS # 0.1 K/uL (0.0-0.7); HEMOGLOBIN 14.5 g/dL (12.0-18.0); LYMPH # 1.6 K/uL (1.0-4.3); LYMPH % 33.5 % (20.0-40.0); MEAN CELL VOLUME 98.2 fL (80.0-94.0); MEAN CORPUSCULAR HEMOGLOBIN 34.1 pg (27.0-31.0); MEAN CORPUSCULAR HGB CONC 34.8 g/dL (33.0-37.0); MEAN PLATELET VOLUME 8.3 fL (7.2-11.7); MONO # 0.5 K/uL (0.0-0.8); MONO % 10.7 % (0.0-10.0); NEUT # 2.6 K/uL (1.8-7.0); NEUT % 53.4 % (50.0-75.0); NRBC % 0.1 % (0.0-2.0); RBC 4.25 Mil/uL (4.40-5.90); RED CELL DISTRIBUTION WIDTH 13.1 % (11.5-14.5); WHITE BLOOD COUNT 4.9 K/uL (4.8-10.8)
[2017-10-07 07:50] VITALS: BP 130/81; RESP 18; TEMP 97.5
--- NOTE | 2017-10-07 07:55 | CP.PCM.PN ---
Subjective - Date & Time of Evaluation Date of Evaluation: 10/07/17 Time of Evaluation: 07:05 - Subjective Subjective: PGY 3 Medicine Note- Dr. Ayala's service Patient seen and examined at bedside, in no acute distress. Patient stated that he requires a rolling walker to ambulate to the bathroom. He reports intermittent dizziness and nausea over the past 2 years, which has not been solved. He is unsure if it is related to his hx of stroke, L eye issues ( unknown medical condition) requiring injection, or kidney stones. He is mildly dizzy on exam, stating it comes on suddenly/randomly, and is not related to positional changes. Reports normal BM and urination. Denies dysuria, vomiting, d /c, or any additional acute complaints. --- Patient is stable for discharge per Dr. Sissy Ayala. Patient should resume all medications as outlined in this document. Additionally, patient should take the new medications listed below (scripts provided). 1. Please make an appointment and follow up with your Primary Doctor, Dr. Abby Holder within one week of discharge. 2. Please make an appointment and follow up with your Urologist, Dr. Abhinav Gillespie, within one week of discharge. You last saw him nearly 2 years ago. Abd US with 4mm R stone and 10mm L stone, non-obstructing. 3. Your PMD will send you for a thyroid ultrasound due to Thyroid nodule seen on MRI. 4. Please follow up with your Neurologist Dr. Wellington within 2 weeks of discharge to further workup your hx of dizziness. Your echo and brain MRI during this hospital stay were all within normal limits. 5. Please obtain your evaluation for vestibular therapy as an outpatient. This will help you with your balance and dizziness. Patient should return to ED immediately if symptoms return or worsen. Instructions discussed with patient who understood and agreed. Newly prescribed medications: Toradol 10mg PO TID PRN #15 Zofran 4mg PO BID PRN #20 Objective - Vital Signs/Intake and Output Vital Signs (last 24 hours): Temp Pulse Resp BP Pulse Ox 97.5 F L 76 18 130/81 100 10/07/17 07:25 10/07/17 07:25 10/07/17 07:25 10/07/17 07:25 10/07/17 07:25 Intake and Output: 10/07/17 10/07/17 06:59 18:59 Intake Total 600 Output Total 200 Balance 400 - Medications Medications: Current Medications Albuterol (Ventolin Hfa 90 Mcg/Actuation (8 G)) 1 puff IH BID [facility] Alprazolam (Xanax) 0.5 mg PO BID [facility] Last Admin: 10/06/17 17:59 Dose: 0.5 mg Aspirin (Ecotrin) 81 mg PO DAILY [facility] Last Admin: 10/06/17 10:08 Dose: 81 mg Diphenhydramine HCl (Benadryl) 25 mg PO TID [facility] Last Admin: 10/06/17 17:59 Dose: 25 mg Enoxaparin Sodium (Lovenox) 40 mg SC DAILY [facility] Last Admin: 10/06/17 10:08 Dose: 40 mg Losartan Potassium (Cozaar) 50 mg PO DAILY [facility] Last Admin: 10/06/17 10:08 Dose: Not Given Pantoprazole Sodium (Protonix Ec Tab) 40 mg PO DAILY [facility] Last Admin: 10/06/17 10:08 Dose: 40 mg Rosuvastatin Calcium (Crestor) 10 mg PO HS [facility] Last Admin: 10/06/17 21:11 Dose: 10 mg Tramadol HCl (Ultram) 50 mg PO Q6 PRN PRN Reason: Pain, moderate (4-7) Last Admin: 10/06/17 21:13 Dose: 50 mg - Labs Labs: 10/07/17 06:21 10/07/17 06:21 - Additional Findings Additional findings: - Constitutional Appears: Non-toxic, No Acute Distress - Head Exam Head Exam: ATRAUMATIC, NORMAL INSPECTION - Eye Exam Eye Exam: EOMI - ENT Exam ENT Exam: Mucous Membranes Moist - Neck Exam Neck Exam: Full ROM, Tenderness (posteriorly) - Respiratory Exam Respiratory Exam: NORMAL BREATHING PATTERN - Cardiovascular Exam Cardiovascular Exam: +S1, +S2 - GI/Abdominal Exam GI & Abdominal Exam: Soft, Tenderness (right sided flank), Normal Bowel Sounds - Back Exam Back Exam: absent: CVA Tenderness (no cva tenderness on L or R). - Extremities Exam Extremities Exam: absent: Pedal Edema - Neurological Exam Neurological Exam: Alert, Awake, Oriented x3 - Psychiatric Exam Psychiatric exam: Normal Affect, Normal Mood - Skin Skin Exam: Normal Color, Warm Assessment and Plan - Assessment and Plan (Free Text) Assessment: Near syncope Assessment & Plan: 10/07: He reports intermittent dizziness and nausea over the past 2 years, which has not been solved. He is unsure if it is related to his hx of stroke, L eye issues (unknown medical condition) requiring injection, or kidney stones. 10/06: Neuro reports syrinx is a chronic stable finding; signing off. MRI of cervical spine- small stable appearing syrinx and or focal dilatation of the central canal within the cord at approx C7-T1. Thyroid nodule noted as well. Per Bicycle I Assembler, Dr. Martínez- Echo reveals normal LV function Neuro recommendations- gait training Head CT negative Carotid dopplers- negative Brain MRI- Stable age related neuro degenerative changes Status: Acute Nausea 10/07: He reports intermittent dizziness and nausea over the past 2 years Zofran 4mg PO once. Patient will report response to medication. HTN (hypertension) Assessment & Plan: Losartan 50 mg PO daily Status: Acute Nephrolithiasis Assessment & Plan: 10/06: pt last saw Dr. Prather over 2 years ago. Since then, he has been attempting home remedies for his kidney stones. Abd US with 4mm R stone and 10mm L stone, non-obstructing. Pt is in significant pain today, with nausea and one episode of vomit. Will D/C with toradol 10mg PO TID PRN x10d. Hypothyroidism Assessment & Plan: Recommendations for thyroid ultrasound to be obtained outpatient Will evaluate symptoms. Recommendations to begin therapy Status: Acute Hip pain Assessment & Plan: Chronic degenerative changes noted. PT/OT evaluation- Home PT with services Status: Acute Prophylactic measure Assessment & Plan: PPI daily Status: Acute Dispo- [facility] with physical therapy and then discharge home with ambulatory device and home PT on 10/06/17. pt does not want to go to [facility]. All management as per Dr. Sissy Ayala. --- Patient is stable for discharge per Dr. Sissy Ayala. Patient should resume all medications as outlined in this document. Additionally, patient should take the new medications listed below (scripts provided). 1. Please make an appointment and follow up with your Primary Doctor, Dr. Abby Holder within one week of discharge. 2. Please make an appointment and follow up with your Urologist, Dr. Abhinav Gillespie, within one week of discharge. You last saw him nearly 2 years ago. Abd US with 4mm R stone and 10mm L stone, non-obstructing. 3. Your PMD will send you for a thyroid ultrasound due to Thyroid nodule seen on MRI. 4. Please follow up with your Neurologist Dr. Wellington within 2 weeks of discharge to further workup your hx of dizziness. Your echo and brain MRI during this hospital stay were all within normal limits. 5. Please obtain your evaluation for vestibular therapy as an outpatient. This will help you with your balance and dizziness. Patient should return to ED immediately if symptoms return or worsen. Instructions discussed with patient who understood and agreed. Newly prescribed medications: Toradol 10mg PO TID PRN #15 Zofran 4mg PO BID PRN #20
[2017-10-07] MEDS: Pantoprazole 40 mg EC Tab PO SCH (09:02)
[2017-10-07] MEDS: Enoxaparin 40 mg Syringe SC SCH (09:03)
[2017-10-07 11:46] VITALS: O2SAT 97
[2017-10-07 14:15] VITALS: PULSE 84
== END 2017-10-07 17:04 | disposition home or self-care (01) ==
LOC: C.ER 13:42 → C.9E 18:16 → C.6T 21:29
PROVIDERS: ADMIT Internal Medicine Nephrology; ATTEND Internal Medicine Nephrology
DX: G95.9 Disease of spinal cord, unspecified (principal); E78.00 Pure hypercholesterolemia, unspecified; I10 Essential (primary) hypertension; J43.9 Emphysema, unspecified; K21.9 Gastro-esophageal reflux disease without esophagitis; Z82.49 Family history of ischemic heart disease and other diseases of the circulatory system; Z86.73 Personal history of transient ischemic attack (TIA), and cerebral infarction without residual deficits; Z87.442 Personal history of urinary calculi; D64.9 Anemia, unspecified; F41.9 Anxiety disorder, unspecified; R07.9 Chest pain, unspecified; R26.9 Unspecified abnormalities of gait and mobility
CPT/HCPCS: 36415; 70450; 70551; 71045; 72141; 73502; 74176; 76700; 80053; 81001; 82550; 82553; 82607; 82746; 82948; 83090; 83690; 83735; 84100; 84439; 84443; 84484; 85025; 85651; 86140; 86592; 87070; 87430; 93005; 93306; 93880; 95812; 96374; 97116; 97162; 97530; 99285; G0378; G8978; G8979; J1650; J1885; J2060; J2405; J7030